=== PATIENT | female | born 1965 | race Caucasian/White ===

== ENCOUNTER 2018-10-18 15:53 | Inpatient (IN) | payer OTHER ==
[~2018-10-18] VITALS: Ht 162.6 cm; Wt 71.9 kg
[2018-10-18 15:53] VITALS: BP_SYST 118
--- NOTE | 2018-10-18 15:53 | NUR ---
BROUGHT IN BY [facility] AND PLACED IN BED #5, TRIAGED AND REPORT GIVEN TO NACHO
--- NOTE | 2018-10-18 16:12 | NUR ---
Patient is of the unit to CT scan.
--- NOTE | 2018-10-18 16:22 | NUR ---
Patient returned to the floor from CT.
--- NOTE | 2018-10-18 16:32 | NUR ---
Patient was bib paramedics. Per the patient's daughter, she was just released fron [facility] on 10/16/18. During this hospitalization the colostomy was left open to air. This morning the patient passed a blood clot from the exposed stoma and has been bleeding ever since. Pateint has ovarain ca with mets and is currently on a did Dilaudid and anti nausesa pump. Patient also has an ilesotmy, G-tube, and peritoneal dialysis tube.
--- NOTE | 2018-10-18 16:38 | NUR ---
ER at bedside examining patient.
[2018-10-18] MEDS ORDERED: NS 500 ML IV ONE (16:45)
[2018-10-18] MEDS ORDERED: LEVOFLOXACIN 500 MG/D5W 100 ML IV ONE (17:00)
[2018-10-18] MEDS ORDERED: PIPERACILLIN/TAZO 3.375 GM in NS 50 ML IV ONE (17:00)
--- NOTE | 2018-10-18 17:00 | NUR ---
Currently infusing IV antiobiotics.
[2018-10-18 17:27] LABS: BASOPHILS % (AUTO) 0.3 % (0.0-2.0); EOSINOPHILS # (AUTO) 0.1 K/uL (0.0-0.4); EOSINOPHILS % (AUTO) 0.4 % (0.0-4.0); HEMATOCRIT 23.8 % (36-48); HEMOGLOBIN 7.4 g/dL (12.0-16.0); LYMPHOCYTES % (AUTO) 7.5 % (20.5-51.5); MEAN CORPUSCULAR HEMOGLOBIN 27 pg (27-31); MEAN CORPUSCULAR HGB CONC 31 % (32-36); MEAN CORPUSCULAR VOLUME 85 fL (79.0-98.0); MONOCYTES # (AUTO) 1.4 K/uL (0.0-1.0); NEUTROPHILS % (AUTO) 81.8 % (40.0-70.0); PLATELET COUNT (AUTO) 154 K/uL (130-430); RED CELL DISTRIBUTION WIDTH 17.9 % (9.0-15.0); WHITE BLOOD COUNT (AUTO) 13.5 K/uL (4.8-10.8)
[2018-10-18 17:28] LABS: CALCIUM 8.9 mg/dL (8.4-11.0); CREATININE 0.78 mg/dL (0.55-1.30); POTASSIUM 3.7 mmol/L (3.5-5.1)
[2018-10-18] MEDS ORDERED: PIPERACILLIN/TAZOBACTAM 3.375 GM/VIAL (ZOSYN) IV ONE (17:33)
[2018-10-18 17:34] LABS: ALBUMIN 1.6 g/dL (3.4-4.8); TOTAL BILIRUBIN 3.6 mg/dL (0.0-1.0)
[2018-10-18 17:35] LABS: INR 1.2 (0.8-1.2); PROTHROMBIN TIME 12.5 SECS (9.5-12.5)
[2018-10-18] MEDS ORDERED: METOCLOPRAMIDE HCL 10 MG/2 ML VIAL IVP ONE (18:15)
[2018-10-18] MEDS ORDERED: PANTOPRAZOLE SODIUM 40 MG/VIAL (PROTONIX) IVP ONE (18:15)
[2018-10-18 18:56] LABS: BILIRUBIN,URINE 2+ (NEGATIVE); CLARITY/URINE HAZY (CLEAR); COLOR,URINE YELLOW (YELLOW); GLUCOSE,URINE NEGATIVE (NEGATIVE); KETONES,URINE NEGATIVE (NEGATIVE); LEUKOCYTE ESTERASE ,URINE NEGATIVE (NEGATIVE); NITRITE, URINE NEGATIVE (NEGATIVE); PH,URINE 5.5 (5.0-8.0); PROTEIN URINE 1+ (NEGATIVE); UROBILINOGEN,URINE 0.2 (0.2-1.0)
[2018-10-18 19:01] LABS: BLOOD, URINE TRACE (NEGATIVE)
[2018-10-18 19:07] LABS: BACTERIA,URINE FEW /HPF (None Seen); COARSE GRANULAR CASTS,URINE 0-10 /LPF (None Seen); FINE GRANULAR CASTS,URINE 0-10 /LPF (None Seen); MUCUS,URINE None Seen /LPF (None Seen); RBC,URINE 0-3 /HPF (0-3); WBC,URINE 0-3 /HPF (0-3)
--- NOTE | 2018-10-18 19:13 | NUR ---
ADMISSION NOTE Received patient from ER via davin, received report from USMAN GRIFFITH. Patient admitted with diagnosis of GI BLEED. Patient oriented to hospital routine, call light, toileting and safety-patient verbalized understanding.
[2018-10-18 19:14] VITALS: BP_SYST 120
--- NOTE | 2018-10-18 19:20 | NUR ---
Patient will be admitted to care of Dr. Quach. Admitted to telemetry unit. Will go to room 117-a. Belongings list completed. Summary report printed. bedside report given to Radha MARY.
[2018-10-18 20:00] VITALS: BP_SYST 108
--- NOTE | 2018-10-18 20:00 | NUR ---
Initial Notes Received patient resting in bed, awake, alert, oriented, family at bedside. Patient denies any acute distress at this time. Vital signs stable. Breathing is even and unlabored on 2L NC. Patient has multiple IV sites, right subclavian port-a-cath infusing IV antibiotics, left forearm #22 infusing IV Zofran from home pump, and right abdominal subq port infusing Dilaudid from home FREIGHT SERVICE INSPECTOR. Bleeding noted from patient's colostomy site, dressing changed. Ileostomy draining whitish drainage. G-tube draining dark green drainage to collection bag. Needs addressed. Educated patient regarding use of call light for assistance and fall precautions, patient verbalized understanding. Call light in hand, fall precautions in place. Will continue to monitor.
--- NOTE | 2018-10-18 20:50 | NUR ---
Paged Dr. Quach Paged Dr. Quach, [phone], s/w Whitney.
--- NOTE | 2018-10-18 21:30 | NUR ---
MD Communication S/W Dr Quach on phone. Notified MD that patient was admitted with home MUNICIPAL COURT JUDGE pump infusing Dilaudid and home IV pump infusing Zofran. Per MD, okay for patient to continue using home pumps, family to maintain.
[2018-10-18] MEDS: cefTRIAXone 1 GM in D5W 50 ML IV SCH (21:56)
[2018-10-18] MEDS ORDERED: cefTRIAXone 1 GM IVPB PREMIX 50 ML IV ONE (22:00)
[2018-10-18] MEDS ORDERED: DEXTROSE 50% JECT 50 ML DISP.SYRIN IVP PRN (22:45)
[2018-10-18] MEDS ORDERED: INSULIN REGULAR, HUMAN 100 UNITS/ML, 10 ML VIAL (novoLIN R) SUBCUT PRN (22:45)
[2018-10-18] MEDS ORDERED: *TPN PER PHARMACY XX PRN (22:45)
[2018-10-18] MEDS ORDERED: METOCLOPRAMIDE HCL 10 MG/2 ML VIAL IVP PRN (22:45)
--- NOTE | 2018-10-18 23:00 | NUR ---
PRBC Transfusion Started Ordered unit of PRBC started, verified and witnessed by Janel MARY. IV site patent/clean/dry. Will continue to monitor for adverse effects.
--- NOTE | 2018-10-18 23:38 | NUR ---
Consultation Paged Reason for Consultation: GI Bleed Was consult called: Y Person who was notified: Rose Consulting Physician: Dr. Robins Adult High School Instructor Ordering Physician: Dr. Quach
[2018-10-18] MEDS: D5LR 1,000 ML IV SCH (23:42)
[2018-10-18] MEDS: PANTOPRAZOLE SODIUM 40 MG in NS 50 ML IV SCH (23:42)
[2018-10-18] MEDS ORDERED: PANTOPRAZOLE SODIUM 40 MG/VIAL (PROTONIX) ONE (23:45)
--- NOTE | 2018-10-18 23:51 | NUR ---
Consultation Paged Reason for Consultation: Ovarian Cancer Was consult called: Y Person who was notified: Whitney Consulting Physician: Dr. Pulliam Watch Commander Ordering Physician: Dr. Quach
[2018-10-19 00:07] VITALS: BP_SYST 112
--- NOTE | 2018-10-19 02:00 | NUR ---
PRBC Transfusion Completed Patient resting in bed, awake, family at bedside. Patient denies any acute distress at this time. Breathing is even and unlabored. IV sites patent/clean/dry. Minimal bleeding noted from colostomy at this time. PRBC transfusion completed, no adverse reaction suspected/reported. Needs addressed. Call light in hand, fall precautions in place.
--- NOTE | 2018-10-19 04:00 | NUR ---
Nursing Notes Patient resting in bed with eyes closed, family at bedside. Patient in no distress. Breathing is even and unlabored. IV site patent/clean/dry, Protonix drip infusing per MD orders. Call light in hand, fall precautions in place.
[2018-10-19] MEDS: PANTOPRAZOLE SODIUM 40 MG in NS 50 ML IV SCH ×4 (04:29→20:34)
[2018-10-19] MEDS ORDERED: PANTOPRAZOLE SODIUM 40 MG/VIAL (PROTONIX) ONE (04:36)
--- NOTE | 2018-10-19 06:50 | NUR ---
Closing Notes Patient resting in bed with eyes closed, easily aroused, family at bedside. Patient denies any acute distress at this time. Breathing is even and unlabored. IV sites patent/clean/dry, no S/S infection/infiltration noted. No active bleeding noted at this time, dressings remains clean/dry/intact. Needs addressed throughout shift. Call light in hand, fall precautions in place. Will continue to monitor for changes and safety, and endorse all patient care/needs to oncoming nurse.
[2018-10-19 06:52] LABS: BASOPHILS % (AUTO) 0.3 % (0.0-2.0); EOSINOPHILS # (AUTO) 0.1 K/uL (0.0-0.4); EOSINOPHILS % (AUTO) 0.8 % (0.0-4.0); HEMOGLOBIN 8.3 g/dL (12.0-16.0); LYMPHOCYTES # (AUTO) 1.1 K/uL (1.0-5.5); LYMPHOCYTES % (AUTO) 10.4 % (20.5-51.5); MEAN CORPUSCULAR HEMOGLOBIN 27 pg (27-31); MEAN CORPUSCULAR HGB CONC 32 % (32-36); MEAN CORPUSCULAR VOLUME 86 fL (79.0-98.0); MONOCYTES # (AUTO) 1.1 K/uL (0.0-1.0); MONOCYTES % (AUTO) 10.9 % (1.7-9.3); NEUTROPHILS # (AUTO) 8.2 K/uL (1.8-7.7); NEUTROPHILS % (AUTO) 77.6 % (40.0-70.0); PLATELET COUNT (AUTO) 132 K/uL (130-430); RED BLOOD CELL COUNT(AUTO) 3.04 MIL/uL (4.2-6.2); RED CELL DISTRIBUTION WIDTH 16.8 % (9.0-15.0); WHITE BLOOD COUNT (AUTO) 10.5 K/uL (4.8-10.8)
[2018-10-19 07:06] LABS: CALCIUM 8.8 mg/dL (8.4-11.0); CREATININE 0.77 mg/dL (0.55-1.30); PHOSPHORUS 4.3 mg/dL (2.7-4.5); POTASSIUM 3.5 mmol/L (3.5-5.1)
--- NOTE | 2018-10-19 08:00 | NUR ---
Opening Note Report received from [facility] shift nurse. Patient is currently awake. A and O x 4. is at the bedside. Right subclavian port-a-cath is running D5LR@100 and Protonix drip @10. Patient has her own Dilaudid FREIGHT CAR CLEANER pump connected to the left abd. Patient's own Zofran drip is running on the LFA 22g. G-tube is draining green fluid. Colostomy stoma is open to air. Ileostomy is draining yellow stool. O2 is at 2l via NC. Call light is within reach and bed is in low position. Will continue to monitor
[2018-10-19] MEDS ORDERED: *TPN PER PHARMACY XX PRN (08:15)
[2018-10-19 08:20] VITALS: BP_SYST 108
[2018-10-19] MEDS ORDERED: PANTOPRAZOLE SODIUM 40 MG/VIAL (PROTONIX) IVP SCH (09:00)
[2018-10-19] MEDS: D5LR 1,000 ML IV SCH (09:39)
--- NOTE | 2018-10-19 10:14 | NUR ---
Rounds Assisted the patient to the commode and back into bed.
[2018-10-19] MEDS: LORazepam 2 MG/ML VIAL IVP PRN ×2 (10:18→23:36)
--- NOTE | 2018-10-19 12:18 | NUR ---
Rounds Patient is currently resting in bed.
[2018-10-19 12:19] VITALS: BP_SYST 102
--- NOTE | 2018-10-19 13:57 | NUR ---
IV insertion Inserted new IV 22g angiocath, on the LFA, using aseptic technique. Patient tolerated well.
--- NOTE | 2018-10-19 16:08 | NUR ---
MD Rounds Dr. Pulliam assessed the patient and spoke with the family at the bedside.
[2018-10-19 16:19] VITALS: BP_SYST 105
[2018-10-19] MEDS: LEVOFLOXACIN 500 MG/D5W 100 ML IV SCH (18:23)
[2018-10-19] MEDS: FAT EMULSIONS 250 ML IV SCH (18:28)
[2018-10-19] MEDS: [UNRECOGNIZED DRUG - OTHER] IV SCH ×7 (18:29)
[2018-10-19] MEDS: MAGNESIUM SULFATE IV SCH ×7 (18:29)
[2018-10-19] MEDS: POTASSIUM CHLORIDE IV SCH ×7 (18:29)
[2018-10-19] MEDS: TPN PERIPHERAL IV SCH ×7 (18:29)
--- NOTE | 2018-10-19 18:32 | NUR ---
Closing Note Patient is currently sleeping in bed. TPN was initiated @ 40ml/hr, lipids @ 5ml/hr all infusing on the right subclavian port-a-cath. D5LR is running @ 60, protonix drip @ 10ml all infusing on the 22g RFA. G-tube, colostomy, ileostomy are in place. Home dilaudid APNS is connected to the right abd. Zofran pump is running on LFA 22g. Family is at the bedside. Call light is within reach and bed is in low position. Will endorse care to the oncoming nurse.
[2018-10-19 20:00] VITALS: BP_SYST 124
[2018-10-19] MEDS: cefTRIAXone 1 GM in D5W 50 ML IV SCH (22:40)
--- NOTE | 2018-10-19 23:04 | NUR ---
NOTES Patient was administered due antibiotic, ceftriaxone; side effects were reviewed with patient and she verbalized understanding. Fingerstick blood glucose result was 99 mg/dL; no insulin coverage. Presently she is comfortable and has no furhter needs. is visiting with patient resting on recliner in room.
--- NOTE | 2018-10-19 23:21 | NUR ---
Paged Dr. Quach s/w Whitney.
--- NOTE | 2018-10-19 23:43 | NUR ---
C/O ANXIETY Patient is reporting anxiety and requested ativan. She also added that the ordered 1mg dose made her sleep all day and requested that I ask the doctor for a half dose. She was feeling very anxious and said would take the ordered dose and can't wait for the doctor to call back. I administered 1 mg as ordered. Her heart rate increased to 139 on the telemonitor and presently after the dose it is decreasing and is presently 113 on the telemonitor. Will monitor.
[2018-10-20] VITALS (19 sets, daily range): BP systolic 93–163
--- NOTE | 2018-10-20 00:38 | NUR ---
NOTES Patient resting w/eyes closed. Symmetrical rise and fall of chest. Call light w/in reach. Will monitor.
--- NOTE | 2018-10-20 00:48 | NUR ---
S/W Spoke w/ Dr. Quach regarding patient's request for ativan. I let him know the patient feels 1mg makes her too sleepy and would prefer a half dose. Dr. Quach ordered 0.5mg Ativan Q4 prn anxiety. Read back order and entered it on [facility].
[2018-10-20] MEDS: PANTOPRAZOLE SODIUM 40 MG in NS 50 ML IV SCH ×3 (01:28→19:55)
[2018-10-20] MEDS: D5LR 1,000 ML IV SCH (01:29)
--- NOTE | 2018-10-20 01:50 | NUR ---
NOTES Patient's IV fluids were replaced and infusing as ordered. She was assisted to the bedside commode and returned to bed. She is resting in comfortable position. is resting on chair at bedside.
--- NOTE | 2018-10-20 02:55 | NUR ---
NOTES Patient called to request cough medication. She reports that at home she take Robitusin for cough. Will page DR. Quach for order.
--- NOTE | 2018-10-20 02:56 | NUR ---
Paged Dr. Quach s/w Whitney
--- NOTE | 2018-10-20 04:00 | NUR ---
NOTES Patient called to report that she is not getting restful sleep due to cough and frequent voiding. I let her know doctor has not called back and will notify MD as soon as he calls.
--- NOTE | 2018-10-20 05:47 | NUR ---
NOTES -SOB Patient is reporting shortness of breath. Patient is on 2L NC and it was increased to 3.5L and oxygen saturation is 86-88%. RT is present for assessment. V/S are BP 126/79, HR 143. Carolyn GALVEZ.
--- NOTE | 2018-10-20 05:49 | NUR ---
Second call for Dr. Quach s/sara Macias
--- NOTE | 2018-10-20 06:03 | NUR ---
Third call for Dr. Quach s/sara Macias
--- NOTE | 2018-10-20 06:10 | NUR ---
NOTES - S/W MD Spoke to Dr. Quach, notified patient is desaturating. He ordered transfer to ICU. He also requested to speak with the charge nurse and gave further orders for stat chest-xray, Lasix IVP and stop fluids.
[2018-10-20] MEDS ORDERED: FUROSEMIDE 40 MG/4 ML VIAL IVP ONE ×2 (06:15→07:15)
--- NOTE | 2018-10-20 06:23 | NUR ---
CALLED : KYLER MARY CALLED TO NOTIFY THAT PT IS DE SATING ; GAVE ORDERES TO HER , BUT SINCE RN COULDNT UNDERSTAND MD , ASKED TO TALK TO CN , SO I TALKED WITH AND GAVE NEW ORDERS - TRANSFER PT TO ICU , LASIX 40 IV X1, CXR , IV FLUID TO STOP . ALL ORDERS ENTERED .NOTIFIED HOUSE SUP .
[2018-10-20] MEDS ORDERED: FUROSEMIDE 40 MG/4 ML VIAL IVP SCH (06:30)
--- NOTE | 2018-10-20 06:40 | NUR ---
Transfer Patient was transferred to ICU; report given to USMAN Latham.
[2018-10-20 06:41] LABS: CALCIUM 8.5 mg/dL (8.4-11.0); CREATININE 0.84 mg/dL (0.55-1.30); POTASSIUM 3.4 mmol/L (3.5-5.1)
[2018-10-20 06:45] LABS: BASOPHILS % (AUTO) 0.3 % (0.0-2.0); EOSINOPHILS # (AUTO) 0.1 K/uL (0.0-0.4); EOSINOPHILS % (AUTO) 0.8 % (0.0-4.0); HEMATOCRIT 26.6 % (36-48); HEMOGLOBIN 8.3 g/dL (12.0-16.0); LYMPHOCYTES # (AUTO) 1.1 K/uL (1.0-5.5); LYMPHOCYTES % (AUTO) 8.5 % (20.5-51.5); MEAN CORPUSCULAR HEMOGLOBIN 27 pg (27-31); MEAN CORPUSCULAR HGB CONC 31 % (32-36); MEAN CORPUSCULAR VOLUME 86 fL (79.0-98.0); MONOCYTES # (AUTO) 1.3 K/uL (0.0-1.0); NEUTROPHILS # (AUTO) 10.6 K/uL (1.8-7.7); NEUTROPHILS % (AUTO) 80.4 % (40.0-70.0); PLATELET COUNT (AUTO) 135 K/uL (130-430); RED CELL DISTRIBUTION WIDTH 17.3 % (9.0-15.0); WHITE BLOOD COUNT (AUTO) 13.1 K/uL (4.8-10.8)
--- NOTE | 2018-10-20 06:45 | NUR ---
Received Patient From [facility] Received transfer of patient from [facility], at bedside. Patient is awake, alert, oriented. Breathing is unlabored on 6L simple mask. Vital signs stable, sinus tach on monitor 120's. IV sites patent/clean/dry. Patient has home CONCRETE MIXER LOADER TRUCK MOUNTED Dilaudid pump, and home Zofran IV drip pump, okay to continue to use per MD. Patient made comfortable, denies any distress at this time. Patient's nurse Annalee MARY, to give bedside report to oncoming nurse USMAN Wayne.
[2018-10-20 06:46] LABS: PHOSPHORUS 3.9 mg/dL (2.7-4.5)
--- NOTE | 2018-10-20 06:52 | NUR ---
Nutrition Update Timi Scale 16 noted. Pt admitted for Upper GI bleed Diet: Clear liquid, no red BMI: 24.5 kg/m2 RD to follow per nutrition care standards.
--- NOTE | 2018-10-20 07:30 | NUR ---
AM ASSESSMENT. PT ABLE TO EXPRESS BASIC NEEDS, OFFERED HER A BEDPAN WHEN SHE ASKED TO BE TAKEN TO A BATHROOM, EDEMA TO LOWER EXTREMITIES NOTED, O2 IN USE, SIMPLE MASK AT 6L, PT DECLINED, A COMMODE IS PROVIDED, RAYMON AT BEDSIDE FOR SUPPORT, PT VOIDED ORANGE COLOR AND ASSISTED BACK TO BED AFTER CARE.
--- NOTE | 2018-10-20 08:00 | NUR ---
SOB. PT MEDICATED WITH LASIX 40 MG IVP ORDERED, EDEMA SEEN FROM UPPER BODY TO HER FEET, PT HAS FENTANYL PATCH TO HER LEFT UPPER ARM, KNIT GOODS MENDER DILAUDID IN USE.
[2018-10-20] MEDS: LORazepam 2 MG/ML VIAL IVP PRN ×3 (10:35→21:21)
--- NOTE | 2018-10-20 10:36 | NUR ---
C/O anxiousness. Requesting 0.5mg ativan to help relax. VSS, Pt on NC @5L reduced to 3L, tolerated well 94% sat. Urinated into BSC prior to associate media director. at bedside. Home pain pump infusing to left wrist, pt comfortable at this time. Medicated per MD PRN orders.
--- NOTE | 2018-10-20 12:12 | NUR ---
Dietitian Recommendations *If/when medically appropriate, recommend D40% AA10% at 75ml/hr (goal rate), IL20% at 10ml/hr via central line. Which will provide: 2064 kcal,90 gm protein and GIR 3.8 gm CHO/kg/min. Which meets: 91% of upper end of estimated calorie needs and 92% of upper end of estimated protein needs. Please see Nutritional Assessment for details. JAIL, RD
--- NOTE | 2018-10-20 15:32 | NUR ---
ANXIETY. PT ASKED FOR ANXIETY MEDS, MEDICATED WITH ATIVAN 0.5 MG IVP.
--- NOTE | 2018-10-20 16:00 | NUR ---
REST. PT SEEN WITH HER EYES CLOSED, FAMILY AT BEDSIDE, "SHE'S TIRED" PER FAMILY.
[2018-10-20] MEDS ORDERED: KCL 40 mEq in 100 mL (PREMIX) 100 ML IV ONE (16:45)
[2018-10-20] MEDS: LEVOFLOXACIN 500 MG/D5W 100 ML IV SCH (17:27)
[2018-10-20] MEDS: [UNRECOGNIZED DRUG - OTHER] IV SCH ×7 (17:58)
[2018-10-20] MEDS: MAGNESIUM SULFATE IV SCH ×7 (17:58)
[2018-10-20] MEDS: TPN PERIPHERAL IV SCH ×7 (17:58)
[2018-10-20] MEDS: POTASSIUM CHLORIDE IV SCH ×23 (17:58→18:40)
[2018-10-20] MEDS: FAT EMULSIONS 250 ML IV SCH (18:21)
[2018-10-20] MEDS: SODIUM CHLORIDE IV SCH ×16 (18:22→18:40)
[2018-10-20] MEDS: K PHOS IV SCH ×16 (18:22→18:40)
[2018-10-20] MEDS: TPN CENTRAL IV SCH ×16 (18:22→18:40)
[2018-10-20] MEDS: [UNRECOGNIZED DRUG - OTHER] IV SCH ×16 (18:22→18:40)
--- NOTE | 2018-10-20 19:30 | NUR ---
PM ASSESSMENT REPORT RECEIVED FROM LUIGI MARY. PT RECEIVED IN BED WITH EYES CLOSED, AROUSABLE TO VERBAL STIMULATION. IS AT BEDSIDE. VSS, NO S/S OF ACUTE DISTRESS NOTED. PT ON 5L OXIMIZER. ST ON MONITOR. RFA 22G INFUSING NS @ 2 CC/HR TKO AND PROTONIX DRIP @ 10 CC/HR, RT UPPER CHEST PORT-A-CATH INFUSING TPN @ 43 CC/HR AND LIPIDS @ 5 CC/HR, LT WRIST 22G INFUSING PTS HOME MEDICATIONS, DILAUDID JAVA SECURITY ARCHITECT PUMP AND ZOFRAN CONTINUOUS INFUSION. FAMILY TO MANAGE HOME MEDICATIONS. G-TUBE IN PLACE, CONNECTED TO DRAINAGE BAG AND DRAINING DARK GREED FLUID. COLOSTOMY SITE DRESSING CDI. ILEOSTOMY BAG IN PLACE DRAINING MINIMAL AMOUNT OF LIQUID STOOL. PT STATES 4/10 PAIN AT THIS TIME IS TOLERABLE. NO OTHER NEEDS VERBALIZED PER PT OR FAMILY AT THIS TIME. HOB ELEVATED, BED IN LOWEST POSITION, CALL LIGHT IN REACH. WILL CONTINUE TO MONITOR PT. Addendum: 10/20/18 at 2347 by Heaven Jordan RN OXIMIZER @ 8L
[2018-10-20] MEDS: IPRATROPIUM BROM 0.5 MG/2.5 ML VIAL.NEB (ATROVENT) INH SCH (19:36)
[2018-10-20] MEDS: LevALBUTEROL HCL 1.25 MG/0.5 ML *CONC.* VIAL.NEB (XOPENEX CONC.) INH SCH (19:37)
[2018-10-20] MEDS: PIPERACILLIN/TAZO 3.375/DEX-IS 50 ML IV SCH ×2 (19:56→23:39)
[2018-10-20] MEDS ORDERED: CEFEPIME 1 GM in D5W 50 ML IV SCH (21:00)
[2018-10-21] VITALS (26 sets, daily range): BP systolic 92–133
[2018-10-21] MEDS: IPRATROPIUM BROM 0.5 MG/2.5 ML VIAL.NEB (ATROVENT) INH SCH ×4 (00:50→19:29)
[2018-10-21] MEDS: LevALBUTEROL HCL 1.25 MG/0.5 ML *CONC.* VIAL.NEB (XOPENEX CONC.) INH SCH ×4 (00:51→19:29)
[2018-10-21] MEDS: PANTOPRAZOLE SODIUM 40 MG in NS 50 ML IV SCH ×5 (01:34→23:39)
[2018-10-21] MEDS: LORazepam 2 MG/ML VIAL IVP PRN ×4 (01:34→19:46)
--- NOTE | 2018-10-21 01:40 | NUR ---
ANXIETY PT CONTINUES TO FEEL ANXIOUS AND RESTLESS. ATIVAN IVP GIVEN PER ORDERS. WILL CONTINUE TO MONITOR PT.
[2018-10-21] MEDS: PIPERACILLIN/TAZO 3.375/DEX-IS 50 ML IV SCH ×4 (05:52→23:39)
[2018-10-21 06:19] LABS: BASOPHILS # (AUTO) 0.1 K/uL (0.0-0.2); BASOPHILS % (AUTO) 0.4 % (0.0-2.0); EOSINOPHILS # (AUTO) 0.1 K/uL (0.0-0.4); EOSINOPHILS % (AUTO) 0.7 % (0.0-4.0); HEMATOCRIT 26.2 % (36-48); LYMPHOCYTES % (AUTO) 6.3 % (20.5-51.5); MEAN CORPUSCULAR HEMOGLOBIN 27 pg (27-31); MEAN CORPUSCULAR HGB CONC 31 % (32-36); MEAN CORPUSCULAR VOLUME 87 fL (79.0-98.0); MONOCYTES # (AUTO) 1.3 K/uL (0.0-1.0); MONOCYTES % (AUTO) 8.1 % (1.7-9.3); NEUTROPHILS # (AUTO) 13.4 K/uL (1.8-7.7); NEUTROPHILS % (AUTO) 84.5 % (40.0-70.0); PLATELET COUNT (AUTO) 114 K/uL (130-430); RED BLOOD CELL COUNT(AUTO) 3.02 MIL/uL (4.2-6.2); RED CELL DISTRIBUTION WIDTH 17.1 % (9.0-15.0); WHITE BLOOD COUNT (AUTO) 15.8 K/uL (4.8-10.8)
[2018-10-21 06:42] LABS: ALBUMIN 1.3 g/dL (3.4-4.8); CALCIUM 8.4 mg/dL (8.4-11.0); CREATININE 0.98 mg/dL (0.55-1.30); PHOSPHORUS 4.2 mg/dL (2.7-4.5); POTASSIUM 3.2 mmol/L (3.5-5.1); TOTAL BILIRUBIN 4.4 mg/dL (0.0-1.0)
--- NOTE | 2018-10-21 07:30 | NUR ---
ENDORSEMENT BEDSIDE REPORT GIVEN TO RAUL MARY USING SBAR APPROACH.
--- NOTE | 2018-10-21 07:40 | NUR ---
RN OPENING NOTE RECEIVED SBAR REPORT AT BEDSIDE FROM ENDORSING NURSE. PT IS AAO, NO COMPLAINT OF PAIN, AT BEDSIDE SEE VS FLOW SHEET.
--- NOTE | 2018-10-21 07:50 | NUR ---
PT MOVED FROM BED 5 TO BED 2 DUE TO CONSTRUCTION IN ROOM 6
--- NOTE | 2018-10-21 10:06 | NUR ---
DR. GARDNER AT BEDSIDE
--- NOTE | 2018-10-21 11:40 | NUR ---
DR. HOLLAND AT BEDSIDE NEW ORDERS RECEIVED
[2018-10-21] MEDS ORDERED: KCL 40 mEq in 100 mL (PREMIX) 100 ML IV ONE (11:45)
--- NOTE | 2018-10-21 12:11 | NUR ---
Nutrition Note RD received consult note regarding evaluation for TF. RD reviewed current EMR including physician's and nursing notes, labs, meds, care trends, and Nutrition Assessment completed yesterday by lorena rey RD. Spoke w/ electrical discharge machine operator regarding this -- she communicated w/ pt's primary RN and stated that pt continues w/ GI bleed and will not be given nutrition support via GT at this time. Pt remains on clear liquid, no red PO diet and TPN w/ lipids. RD to continue to follow as per nutrition care standards.
[2018-10-21] MEDS: NACL 0.9% 1,000 ML IV SCH (12:59)
--- NOTE | 2018-10-21 14:05 | NUR ---
DC PLANNING Spoke sara JuárezMaurizio from [email or web address], office [phone] cell [phone], they are handling TPN & Dilaudid for pt. Once ready to dc to give them a call to set up TPN & Dilaudid for home if still needed. If needs IV abx can call & will set up. Addendum: 10/21/18 at 1413 by Vee Paredes RN add to note above: Farrukh in pharmacist @ [email or web address] if any questions.
[2018-10-21] MEDS: LEVOFLOXACIN 500 MG/D5W 100 ML IV SCH (16:45)
[2018-10-21] MEDS ORDERED: K PHOS IV SCH ×8 (18:00)
[2018-10-21] MEDS ORDERED: SODIUM CHLORIDE IV SCH ×8 (18:00)
[2018-10-21] MEDS ORDERED: POTASSIUM CHLORIDE IV SCH ×8 (18:00)
[2018-10-21] MEDS ORDERED: [UNRECOGNIZED DRUG - OTHER] IV SCH ×8 (18:00)
[2018-10-21] MEDS ORDERED: TPN CENTRAL IV SCH ×8 (18:00)
[2018-10-21] MEDS: fentaNYL 100 MCG/HR PATCH TD SCH (18:00)
--- NOTE | 2018-10-21 18:14 | NUR ---
FENTANYL PATCH NON-ADMINISTERED, FAMILY ALREADY ADMINISTERED THEIR OWN 0.2 MG PATCH
[2018-10-21] MEDS: FAT EMULSIONS 250 ML IV SCH (18:18)
--- NOTE | 2018-10-21 19:10 | NUR ---
ENDORSEMENT SBAR REPORT ENDORSED TO RECEIVING RN AT BEDSIDE. PT AAO, SITTING UP IN BED WITH NO COMPLAINT.
--- NOTE | 2018-10-21 19:45 | NUR ---
i have administered ativan:0.5mg ivp per the pt's requests.
--- NOTE | 2018-10-21 20:00 | NUR ---
pt.assessed.v/s assessed.pt.presents hx;cancer;ovarian;extensive w/mets pulmonary.per monitor;cardio;pt.presents s.tachycardia. no arrythmias.pt.presents breathing pattern;tachypnea;breathing character;shallow,dyspnea@rest/excertion.pt.receiving the administration o2-therapy via oximizer;o2 administered@the rate of 10l.o2-sat%=96%.hhn-treatment; per r/t:scheduled q=6hrs. pt.presents general status weak.upper/lower extremities;pt.presents edema;generalized:upper lower extremities.pt.presents pump:dilaudid/zofran;pump settings adjusted per family;pmd.pt.presents multiple iv sites.location;rt.svc;port/cath.tpn/lipids administered.rt.forearm:iv fluids/protonix-drip.rlq;abdomen;dilaudid;lt.forearm;zofran-drip.pt.presents plera-vac:llq;abdomen: pt.abdomen cavity drained;periodically.pt.presents colostomy/ileostomy;mid-line abdomen;upper.colostomy:cover;dsg.absent colostomy bag.ileostomy presents collection bag,g-tube connected to drainage bag;gravity.pt.repositioned.pt.utilizing the bsc.call light/telephone placed w/in the reach of the pt. Addendum: 10/22/18 at 0159 by Angel Polo RN pt.repositioned.
--- NOTE | 2018-10-21 21:00 | NUR ---
i have assisted th pt.to the bsc.pt.assisted return to bed.heart rate accelerated;122bmp.post return to bed from the bsc. o2 therapy intact administered.
--- NOTE | 2018-10-21 22:00 | NUR ---
pt.assessed.pt.repositioned.pt.assessed for cleanliness.
--- NOTE | 2018-10-21 23:45 | NUR ---
pt.assisted to the bsc.pt.assisted return to bd.heart rate accelerated post return to bed from the bsc. i have assessed the blood glucose;value;108mg/dl.
[2018-10-22] VITALS (24 sets, daily range): BP systolic 84–137
--- NOTE | 2018-10-22 | NUR ---
pt.assessed.pt.assessed for cleanliness.pt.repositioned.i have assessed the iv access;all intact;patent.pt.presents general loc;lethargic;arouseable.v/s assessed ;values w/in normal limits.o2-sat%=96%v/s assessed;values w/in normal limits.call light/telephone placed w/in the reach of the pt. Addendum: 10/22/18 at 0210 by Angel Polo RN i have administered the zosyn;abx;ivpb 0000a dose.i have administered the protonix-drip bag.
[2018-10-22] MEDS: IPRATROPIUM BROM 0.5 MG/2.5 ML VIAL.NEB (ATROVENT) INH SCH ×4 (00:43→19:32)
[2018-10-22] MEDS: LevALBUTEROL HCL 1.25 MG/0.5 ML *CONC.* VIAL.NEB (XOPENEX CONC.) INH SCH ×4 (00:43→19:32)
[2018-10-22] MEDS: LORazepam 2 MG/ML VIAL IVP PRN ×4 (00:55→16:26)
--- NOTE | 2018-10-22 01:00 | NUR ---
pt.assisted to the bsc.pt.assisted return to bed.pt.repositioned.noted heart rate accelerated post return to bed from the bsc. pt.had requested ativan.i have administered ativan:0.5m ivp.pt.had requested water:cup of water provided.
--- NOTE | 2018-10-22 02:00 | NUR ---
pt.assessed v/s assessed;values w/in normal limits.pt.repositioned.all iv access intact;patent.
--- NOTE | 2018-10-22 04:00 | NUR ---
pr.assessed.v/s assessed.pt.presents cardio;s.tachycardia.pt.assessed for cleanliness.pt.repositioned.i have assessed the iv access; intact;patent.iv fluids,tpn/lipids infusing.protonix drip,dilaudid/zofran drips infusing.general status stable.respiratory status;labored:breathing pattern/character tachypnea.call light/telephone placed w/in the reach of the pt.
[2018-10-22] MEDS: PANTOPRAZOLE SODIUM 40 MG in NS 50 ML IV SCH ×5 (04:50→22:07)
[2018-10-22] MEDS: PIPERACILLIN/TAZO 3.375/DEX-IS 50 ML IV SCH ×3 (05:23→17:32)
--- NOTE | 2018-10-22 06:00 | NUR ---
pt.assisted to the bsc.pt.assisted return to bed.pt.repositioned.pt.presents accelerated heart rate post return to bed from bsc. pt's requested the administration of ativan.i have administered ativan:0.5mg ivp.breathing pattern/character labored.pt. receiving o2 therapy via oximizer administered@10l/min.
[2018-10-22 06:09] LABS: BASOPHILS # (AUTO) 0.1 K/uL (0.0-0.2); BASOPHILS % (AUTO) 0.5 % (0.0-2.0); EOSINOPHILS # (AUTO) 0.2 K/uL (0.0-0.4); EOSINOPHILS % (AUTO) 1.1 % (0.0-4.0); HEMATOCRIT 24.7 % (36-48); HEMOGLOBIN 7.6 g/dL (12.0-16.0); LYMPHOCYTES # (AUTO) 0.8 K/uL (1.0-5.5); LYMPHOCYTES % (AUTO) 5.1 % (20.5-51.5); MEAN CORPUSCULAR HEMOGLOBIN 27 pg (27-31); MEAN CORPUSCULAR HGB CONC 31 % (32-36); MEAN CORPUSCULAR VOLUME 87 fL (79.0-98.0); MONOCYTES # (AUTO) 1.3 K/uL (0.0-1.0); MONOCYTES % (AUTO) 8.1 % (1.7-9.3); NEUTROPHILS # (AUTO) 13.5 K/uL (1.8-7.7); NEUTROPHILS % (AUTO) 85.2 % (40.0-70.0); PLATELET COUNT (AUTO) 103 K/uL (130-430); RED BLOOD CELL COUNT(AUTO) 2.86 MIL/uL (4.2-6.2); RED CELL DISTRIBUTION WIDTH 17.8 % (9.0-15.0); WHITE BLOOD COUNT (AUTO) 15.8 K/uL (4.8-10.8)
[2018-10-22 06:28] LABS: CALCIUM 8.5 mg/dL (8.4-11.0); CREATININE 1.06 mg/dL (0.55-1.30); POTASSIUM 3.5 mmol/L (3.5-5.1)
--- NOTE | 2018-10-22 06:30 | NUR ---
pt's @bedside.i inquired if i may attend to dsg change;port/cath,chg bath,change of the colostomy dsg,ileostomy bag. pt's stated it was best to allow the pt,.to rest.pt's has refused the changing of the dsg's.
[2018-10-22 06:38] LABS: ALBUMIN 1.3 g/dL (3.4-4.8); PHOSPHORUS 3.4 mg/dL (2.7-4.5); TOTAL BILIRUBIN 4.6 mg/dL (0.0-1.0)
--- NOTE | 2018-10-22 07:05 | NUR ---
Opening Note Patient received sleeping in bed with @ bedside. Patient connected to monitor with sinus tach. Patient on 10L oxygen via oximizer. Patient has right forearm 22 gauge IV infusing NS @ 10ml/hr and protonix drip @ 10ml, right lower abdomen MARKET RESEARCH COORDINATOR pump from home, left forearm IV infusing zofran drip from home, and a right subclavian port-a-cath infusing TPN @ 43 ml/hr and lipids @ 5 ml/hr. Patient uses bedside commode to void with assist. Reinforced use of call light. Safety precautions enforced.
--- NOTE | 2018-10-22 07:30 | NUR ---
MD Rounds Dr. Wren @ bedside.
[2018-10-22] MEDS ORDERED: TPN CENTRAL IV SCH ×16 (08:15→18:00)
[2018-10-22] MEDS ORDERED: K PHOS IV SCH ×16 (08:15→18:00)
[2018-10-22] MEDS ORDERED: POTASSIUM CHLORIDE IV SCH ×16 (08:15→18:00)
[2018-10-22] MEDS ORDERED: [UNRECOGNIZED DRUG - OTHER] IV SCH ×16 (08:15→18:00)
[2018-10-22] MEDS ORDERED: SODIUM CHLORIDE IV SCH ×16 (08:15→18:00)
--- NOTE | 2018-10-22 09:35 | NUR ---
MD Jang. Dr. Buenrostro @ bedside. New orders received and will be carried out.
[2018-10-22] MEDS ORDERED: FUROSEMIDE 20 MG/2 ML VIAL IVP ONE (09:45)
[2018-10-22] MEDS: ALBUMIN HUMAN 25% 50 ML IV SCH ×3 (10:40→21:11)
[2018-10-22] MEDS: NACL 0.9% 1,000 ML IV SCH ×2 (11:45→17:07)
--- NOTE | 2018-10-22 12:00 | NUR ---
RN Rounds Patient resting in bed with @ bedside. No signs of acute distress noted. Safety precautions enforced.
--- NOTE | 2018-10-22 13:00 | NUR ---
Rounds Dr. Quach @ bedside.
--- NOTE | 2018-10-22 14:54 | NUR ---
Case mgt: Pt continues on oxymizer 10 Liters/min--Per ICU nursing, they are attempting to wean pt's high flow oxygen down before pt can go home on hospice--AMAURY MARY
--- NOTE | 2018-10-22 15:00 | NUR ---
Central line dressing change Port-a-cath dressing changed using aseptic technique. Patient tolerated procedure well. No signs of acute distress noted.
--- NOTE | 2018-10-22 16:24 | NUR ---
Nutrition F/U Admitting Diagnosis Upper GI bleed Reviewed Pertinent Medical/Surgical Hx Medical Record Patient Primary RN Medical History Comment: Per updated MD note: GI bleeding, Acute Blood Loss Anemia, Anemia of chronic illness, Pneumonia, Metastatic Ovarian Mucinous Carcinoma, Multiple abdominal Surgeries, SBO, DVT in both legs, IVC filter, severe protein malnutrition, dysphagia on TPN Subjective Information Pt seen sleeping in bed, +oximizer, w/ nurse at bedside. Per RN report, pt is tolerating TPN which is infusing at 43 ml/hr. Per RN, pt is dependent on oximizer and once pt is able to breathe better, she will be transferred to hospice. Per EMR, I/O: 895/1550 -655ml; IV total intake 795 ml per 12 hrs. Pt does not appear appropriate for invasive procedure for GT feeding as she is on palliative care. Current TPN regimen provides: 1148 kcal/day, 52 gm protein/day, 1152 ml total volume/day, and GIR: 2 gm CHO/kg/min. This meets 59% of lower end of estimated caloric needs and 80% of upper end of estimated protein needs. Pt is not yet meeting adequate nutrition w/ current TPN regimen. Nutrition education is not provided at this time. Per previous RD note 10/21/18: Spoke w/ pharmacist in charge owner regarding this -- she communicated w/ pt's primary RN and stated that pt continues w/ GI bleed and will not be given nutrition support via GT at this time. Pt remains on clear liquid, no red PO diet and TPN w/ lipids. RD to continue to follow as per nutrition care standards. Current Diet Order/Nutrition Support Clear liquid, no red + D40%, AA10% at 43.75ml/hr, IL20% at 5ml/hr via central line Patient/Significant Other Able To Verbalize Education Provided Not Indicated Pertinent Medications fentanyl, MVI, reglan, lorazepam, piperacillin/tazobactam Pertinent Labs K 3.5 WNL (improved), BG 106 H (improved), POC BG 131 H, Alb 1.3 L, H/H 7.6 L/24.7 L Height (Feet) 5 feet Height (Inches) 4.00 inches Weight (Pounds) 143 pounds Weight (Calculated Kilograms) 64.887318 kilograms Patient Weight 64.864 kg Body Mass Index 24.54 kg/m2 Usual Weight 180 lbs %UBW 79 %IBW 119 [place]/Adjusted Body Weight 120 lb, 55 kg Recent Weight Change Yes - 37 lb wt loss in 9 months (20% severe wt loss) Weight Status Appropriate Gastrointestinal Symptoms None Last BM Oct 19, 2018 Usual Diet At Home TPN dependent, water, juices per . Skin Integrity Comment: Timi scale: 16; Per RN notes +pale skin color, no skin breakdown, 2+ pitting edema to Bilateral foot. Current % PO Negligible <25% Estimated Energy Expenditure (kcals/day) 2906-9142 kcal/day (30-35 kcal/kg CBW for Cancer) Estimated Protein Required (g/day) 65-98 gm/day (1-1.5 gm/kg CBW for Cancer) Estimated Fluid Required (l/day) per MD (fluid overload) Problem/Etiology/Signs/Symptoms Inability to ingest food r/t altered GI function AEB pt's family's report of small amount of liquid diet at home and TPN dependent. *Ongoing Expected Outcomes/Goals Monitor TPN intake and tolerance w/ goal of pt meeting at least 75% of estimated nutritional needs, labs trending WNL, normal GI function, skin integrity/wt maintenance. *Ongoing Dietitian Recommendations *If/when medically appropriate, recommend D40% AA10% at 75ml/hr (goal rate), IL20% at 5ml/hr via central line. Which will provide: 1824 kcal/day, 90 gm protein/day, 1940 ml total volume/day, and and GIR 3.5 gm CHO/kg/min. Which meets: 94% of upper end of estimated calorie needs and 92% of upper end of estimated protein needs. Follow Up High Risk: F/U in 2-3 days Signed: 10/22/18 at 1624 by Pretty EAST <Co-Signature Required> Co-Signed: 10/22/18 at [address] Addendum: 10/22/18 at [address] RD spoke w/ pharmacist via phone call to relay new RD rec for TPN support. PharmD stated that she plans to increase pt's TPN to Dr. Quach's goal rate of 60 ml/hr. Pt was having some issues w/ fluid balance, therefore no adjustments were made to current TPN rate. RD to continue to follow as per nutrition care standards.
--- NOTE | 2018-10-22 16:32 | NUR ---
Dietitian Recommendations *If/when medically appropriate, recommend D40% AA10% at 75ml/hr (goal rate), IL20% at 5ml/hr via central line. Provide: 1824 kcal/day, 90 gm protein/day, 1940 ml total volume/day, and and GIR 3.5 gm CHO/kg/min. Meets: 94% of upper end of estimated calorie needs and 92% of upper end of estimated protein needs. LP, RD Please refer to Nutrition F/U for details.
[2018-10-22] MEDS: LEVOFLOXACIN 500 MG/D5W 100 ML IV SCH (17:07)
[2018-10-22] MEDS: FAT EMULSIONS 250 ML IV SCH (17:12)
--- NOTE | 2018-10-22 19:15 | NUR ---
Closing Note Endorsed to power and recovery shift engineer RN using SBAR format. Patient in no signs of acute distress at this time.
--- NOTE | 2018-10-22 19:30 | NUR ---
PM ASSESSMENT Pt in bed w/ eyes closed resting comfortably, no signs of acute distress or discomfort noted. Family at bedside. VSS w/ Sinus Tach seen on the monitor. Pt on 10L O2 via oximizer, tolerating well w/ O2 sats @ 97% and even and unlabored breathing. Pt has a Right FA 20 g infusing NS @ 10cc/hr and protonix drip @ 10 ml/hr, L 22g infusing zofran drip from home, right lower abd [employer]ARDS pump from home, and a right subclavian port-a-cath infusing TPN @ 43 cc/hr and lipids@ 5 cc/hr. Bed is locked and in lowest position, call light w/in reach, will continue to monitor.
--- NOTE | 2018-10-22 22:33 | NUR ---
BT INITIATION: Consent signed per family agreeing to administration of blood. Blood has been type and crossmatched. Blood sent from blood bank. Information on unit of blood checked against patient wristband at bedside by two nurses. All information matches. Patient or responsible alliance party informed of potential complications associated with blood transfusion. Informed of possible transfusion reaction symptoms. Aware of need to notify nurse at once of itching, shortness of breath, flushing, feeling of impending doom, or other symptoms not previously present. Vital signs taken within 5 minutes prior to initiation of transfusion. RN will remain with patient for first 15 minutes of transfusion at which time vital signs will be re-assessed.
[2018-10-23] VITALS (25 sets, daily range): BP systolic 92–129
[2018-10-23] MEDS: PIPERACILLIN/TAZO 3.375/DEX-IS 50 ML IV SCH ×4 (00:33→17:01)
[2018-10-23] MEDS: LevALBUTEROL HCL 1.25 MG/0.5 ML *CONC.* VIAL.NEB (XOPENEX CONC.) INH SCH ×4 (01:16→19:51)
[2018-10-23] MEDS: IPRATROPIUM BROM 0.5 MG/2.5 ML VIAL.NEB (ATROVENT) INH SCH ×4 (01:16→19:52)
[2018-10-23] MEDS: LORazepam 2 MG/ML VIAL IVP PRN ×3 (02:00→20:11)
--- NOTE | 2018-10-23 02:13 | NUR ---
CHG Offered pt CHG bath at this time but pt and pt family refused. Pt's states "I want her to sleep and rest for the night, we would like it during the day". Educated the family on benefits of CHG bath. Will continue to monitor.
[2018-10-23] MEDS: PANTOPRAZOLE SODIUM 40 MG in NS 50 ML IV SCH ×4 (03:29→22:56)
--- NOTE | 2018-10-23 05:00 | NUR ---
Pt in bed w/ eyes closed resting comfortably. No signs of acute distress or discomfort noted. Family sleeping at bedside. Pt doesn't verbalize any other needs at this time. Will continue to monitor.
[2018-10-23 05:35] LABS: BASOPHILS # (AUTO) 0.1 K/uL (0.0-0.2); BASOPHILS % (AUTO) 0.5 % (0.0-2.0); EOSINOPHILS # (AUTO) 0.2 K/uL (0.0-0.4); HEMATOCRIT 27.7 % (36-48); HEMOGLOBIN 8.5 g/dL (12.0-16.0); LYMPHOCYTES % (AUTO) 5.7 % (20.5-51.5); MEAN CORPUSCULAR HEMOGLOBIN 26 pg (27-31); MEAN CORPUSCULAR HGB CONC 31 % (32-36); MEAN CORPUSCULAR VOLUME 86 fL (79.0-98.0); MONOCYTES # (AUTO) 1.4 K/uL (0.0-1.0); MONOCYTES % (AUTO) 8.2 % (1.7-9.3); NEUTROPHILS # (AUTO) 14.8 K/uL (1.8-7.7); NEUTROPHILS % (AUTO) 84.6 % (40.0-70.0); PLATELET COUNT (AUTO) 96 K/uL (130-430); RED BLOOD CELL COUNT(AUTO) 3.21 MIL/uL (4.2-6.2); RED CELL DISTRIBUTION WIDTH 16.9 % (9.0-15.0); WHITE BLOOD COUNT (AUTO) 17.5 K/uL (4.8-10.8)
[2018-10-23 06:46] LABS: CALCIUM 8.6 mg/dL (8.4-11.0); CREATININE 1.14 mg/dL (0.55-1.30); POTASSIUM 3.3 mmol/L (3.5-5.1)
[2018-10-23 06:53] LABS: ALBUMIN 1.7 g/dL (3.4-4.8); PHOSPHORUS 3.5 mg/dL (2.7-4.5); TOTAL BILIRUBIN 5.5 mg/dL (0.0-1.0)
--- NOTE | 2018-10-23 07:20 | NUR ---
ENDORSEMENT Report given to USMAN Montgomery using SBAR format and pt care was endorsed. Pt in bed w/ eyes closed resting comfortably, no signs of acute distress or discomfort noted. Family at bedside.
--- NOTE | 2018-10-23 07:25 | NUR ---
Opening Note Patient received sleeping in bed with @ bedside. Patient on secured entrance monitor with sinus tachy. Patient on 10L O2 via oximizer breathing evenly and unlabored. Patient has multiple IV access sites including a right forearm 22 gauge infusing NS @ 10 ml/hr and protonix drip @ 10 ml/hr, right subclavian port-a-cath infusing TPN @ 43.75 ml/hr and lipids @ 5 ml/hr, a right lower abdomen 22 IV infusing PALLET STONE POSITIONER pump (dilaudid) from home, and a left forearm 22 IV infusing zofran drip from home. Safety precautions enforced. Call light in reach.
--- NOTE | 2018-10-23 09:40 | NUR ---
MD Rounds Dr. Pulliam @ bedside. No new orders received.
--- NOTE | 2018-10-23 11:31 | NUR ---
1118 TRIED PT ON ET CO2 NASAL CANNULA @8LPM. PT DESAT TO 88%. PLACED PT ON 8L OXYMIZER. SAT 94% [id number]. Addendum: 10/23/18 at 1133 by Liana Law RT Amended: Links added.
--- NOTE | 2018-10-23 12:00 | NUR ---
RN Rounds Patient asleep in bed. No signs of acute distress noted. No complaints of pain. Safety precautions enforced.
[2018-10-23] MEDS ORDERED: POTASSIUM CHLORIDE 40 MEQ in D5W 250 ML IV ONE (12:15)
--- NOTE | 2018-10-23 12:16 | NUR ---
Sawmilling Operator Note HAND SPLITTER met with patient's at bedside. Discussed that patient and family goal remains to get patient home to attend her daughter's wedding on November 01. They are happy with [facility] palliative care and will stay with them when patient is ready to switch to hospice. They also use [facility] for pain relief and TPN. Patient's daughter is a nurse and is assisting with patient's care at home. Discussed patient's three year cancer and treatment history. Offered support. Sawmilling Operator will remain available upon request.
--- NOTE | 2018-10-23 13:00 | NUR ---
Rounds Dr. Quach @ bedside. New orders received and will be carried out.
[2018-10-23] MEDS ORDERED: FUROSEMIDE 20 MG/2 ML VIAL IVP ONE (15:30)
--- NOTE | 2018-10-23 16:00 | NUR ---
RN Rounds Patient asleep in bed. No signs of acute distress noted. No complaints of pain. Safety precautions enforced. Use of call light reinforced.
[2018-10-23] MEDS ORDERED: VANCOMYCIN HCL 1 GM/NS PREMIX 250 ML IV SCH (17:00)
[2018-10-23] MEDS: FAT EMULSIONS 250 ML IV SCH (17:01)
[2018-10-23] MEDS ORDERED: TPN CENTRAL IV SCH ×8 (18:00)
[2018-10-23] MEDS ORDERED: SODIUM CHLORIDE IV SCH ×8 (18:00)
[2018-10-23] MEDS ORDERED: K PHOS IV SCH ×8 (18:00)
[2018-10-23] MEDS ORDERED: [UNRECOGNIZED DRUG - OTHER] IV SCH ×8 (18:00)
[2018-10-23] MEDS ORDERED: POTASSIUM CHLORIDE IV SCH ×8 (18:00)
--- NOTE | 2018-10-23 19:25 | NUR ---
Closing Note Patient endorsed to spinning doffer RN using SBAR format. No signs of acute distress noted. Safety precautions enforced.
--- NOTE | 2018-10-23 20:00 | NUR ---
PM Assessment Pt laying supine in bed w/ at bedside. AAO. Sinus tach shown on monitor. Pt on Oxymizer @8L saturation at 96%. No s/s of distress noted. Pt no c/o of pain at this time. Pt has RFA 20g running NS @10mL/hr, and Protonix Drip @10mL/hr. Pt came in with Rt subclavian portacath that is now infusing TPN/Lipids, a Rt Lower ABD IV that is running Dilaudid on a CUSTOM FURRIER pump which was set up by hospice care and is being managed by Pt at bedside. Pt also came in with a LFA 22g, that is running a Zofran drip, which was set up by hospice care and being managed by Pt. IV sites C/D/I, no s/s of infiltration noted. Pt has G-tube in place draining fluid to gravity. Pt has a PleurX drainage site that is being managed by the family. Pt has a colostomy and ileostomy. No drainage noted from colostomy. Minimal yellow drainage draining from ileostomy. Pt has Fentanyl patch in place in [place]. Bed locked in lowest position, safety precautions in place, bedside commode in place and call light in reach. Will continue to monitor.
--- NOTE | 2018-10-23 20:30 | NUR ---
CHG CHG bath given. Pt tolerated well. Will continue to monitor.
--- NOTE | 2018-10-23 21:00 | NUR ---
Pt placed on 6L Oximizer, saturating 93-96%. Pt tolerating well. Will continue to monitor.
--- NOTE | 2018-10-23 23:08 | NUR ---
Endorsement Report given to Lc MARY at bedside via SBAR approach. Pt showing no s/s of distress or c/o of any pain at this time.
--- NOTE | 2018-10-23 23:10 | NUR ---
Report received from USMAN Santillan using SBAR format and pt care was endorsed.
[2018-10-24] VITALS (24 sets, daily range): BP systolic 96–148
[2018-10-24] MEDS: PIPERACILLIN/TAZO 3.375/DEX-IS 50 ML IV SCH ×5 (00:25→23:40)
[2018-10-24] MEDS: PANTOPRAZOLE SODIUM 40 MG in NS 50 ML IV SCH ×5 (00:26→20:13)
[2018-10-24] MEDS: IPRATROPIUM BROM 0.5 MG/2.5 ML VIAL.NEB (ATROVENT) INH SCH ×4 (01:23→19:00)
[2018-10-24] MEDS: LevALBUTEROL HCL 1.25 MG/0.5 ML *CONC.* VIAL.NEB (XOPENEX CONC.) INH SCH ×4 (01:23→19:00)
--- NOTE | 2018-10-24 02:55 | NUR ---
Pt in bed w/ eyes closed resting comfortably. No signs of acute distress or discomfort noted. Pt on 6L O2 via Oximizer tolerating well w/ even and unlabored breathing and O2 sats @ 95%. Pt doesn't verbalize any needs at this time. Family sleeping at bedside. Bed is locked and in lowest position, call light w/in reach, will continue to monitor.
[2018-10-24 05:26] LABS: BASOPHILS % (AUTO) 0.3 % (0.0-2.0); EOSINOPHILS # (AUTO) 0.2 K/uL (0.0-0.4); EOSINOPHILS % (AUTO) 1.2 % (0.0-4.0); HEMATOCRIT 27.2 % (36-48); HEMOGLOBIN 8.4 g/dL (12.0-16.0); LYMPHOCYTES % (AUTO) 6.6 % (20.5-51.5); MEAN CORPUSCULAR HEMOGLOBIN 26 pg (27-31); MEAN CORPUSCULAR HGB CONC 31 % (32-36); MEAN CORPUSCULAR VOLUME 86 fL (79.0-98.0); MONOCYTES # (AUTO) 1.2 K/uL (0.0-1.0); MONOCYTES % (AUTO) 7.6 % (1.7-9.3); NEUTROPHILS # (AUTO) 13.2 K/uL (1.8-7.7); NEUTROPHILS % (AUTO) 84.3 % (40.0-70.0); PLATELET COUNT (AUTO) 106 K/uL (130-430); RED BLOOD CELL COUNT(AUTO) 3.17 MIL/uL (4.2-6.2); RED CELL DISTRIBUTION WIDTH 17.1 % (9.0-15.0); WHITE BLOOD COUNT (AUTO) 15.7 K/uL (4.8-10.8)
[2018-10-24 05:51] LABS: CALCIUM 8.6 mg/dL (8.4-11.0); CREATININE 1.13 mg/dL (0.55-1.30); POTASSIUM 3.3 mmol/L (3.5-5.1)
[2018-10-24 05:58] LABS: ALBUMIN 1.5 g/dL (3.4-4.8); PHOSPHORUS 3.5 mg/dL (2.7-4.5); TOTAL BILIRUBIN 5.1 mg/dL (0.0-1.0)
[2018-10-24] MEDS: LORazepam 2 MG/ML VIAL IVP PRN ×3 (07:08→21:48)
--- NOTE | 2018-10-24 07:20 | NUR ---
ENDORSEMENT Report given to USMAN Pringle using SBAR format and pt care was endorsed. Pt in bed w/ eyes close resting comfortably. No signs of acute distress or discomfort noted. Pt doesn't verbalize any needs at this time.
--- NOTE | 2018-10-24 07:20 | NUR ---
Report and patient received from [facility] shift nurse. Patient in bed sleeping at semifowler's position side rails x 2 up call light with in reach. sleeping at bedside. In no acute distress noted.
[2018-10-24] MEDS: METOCLOPRAMIDE HCL 10 MG/2 ML VIAL IVP PRN ×2 (10:23→16:54)
[2018-10-24] MEDS: FAT EMULSIONS 250 ML IV SCH (10:44)
[2018-10-24] MEDS ORDERED: POTASSIUM CHLORIDE 40 MEQ in NS 250 ML IV ONE (14:00)
--- NOTE | 2018-10-24 14:15 | NUR ---
Respiratory therapist Ally stated decreased Oxymizer to 5 liters of continuous oxygen.
[2018-10-24] MEDS ORDERED: COMMUNICATION ORDER XX SCH (14:30)
--- NOTE | 2018-10-24 14:30 | NUR ---
MD Quach at bedside. Informed of heart rate up to 142. No new orders.
--- NOTE | 2018-10-24 14:50 | NUR ---
Nutrition F/U Admitting Diagnosis Upper GI bleed Reviewed Pertinent Medical/Surgical Hx Medical Record Patient Primary RN Medical History Comment: Per updated MD note: GI bleeding, Acute Blood Loss Anemia, Anemia of chronic illness, Pneumonia, Metastatic Ovarian Mucinous Carcinoma, Multiple abdominal Surgeries, SBO, DVT in both legs, IVC filter, severe protein malnutrition, dysphagia on TPN Per updated MD note 10/24/18: Acute hypoxic respiratory failure, pneumonia, metastatic mucinous ovarian CA, GI bleed, anemia, chronic pain, hypoalbuminemia Subjective Information Pt seen sleeping in bed, +oximizer, w/ nurse and at bedside. Per RN report, pt is tolerating TPN which is infusing at 43 ml/hr. Per RN, pt is still being monitored until she will be transferred to hospice. Per EMR, I/O: 1006/1210 -204ml; IV total intake 190 ml per 12 hrs. Pt does not appear appropriate for invasive procedure for GT feeding as she is on palliative care. Current TPN regimen provides: 1148 kcal/day, 52 gm protein/day, 1152 ml total volume/day, and GIR: 2 gm CHO/kg/min. This meets 59% of lower end of estimated caloric needs and 80% of upper end of estimated protein needs. Pt is not yet meeting adequate nutrition w/ current TPN regimen. Nutrition education is not provided at this time. Current Diet Order/Nutrition Support Clear liquid, no red + D40%, AA10% at 43.75ml/hr, IL20% at 5ml/hr via central line Patient/Significant Other Able To Verbalize Education Provided Not Indicated Pertinent Medications fentanyl, MVI, reglan, lorazepam, piperacillin/tazobactam Pertinent Labs K 3.3 L, BG 118 H, POC BG 131 H, Alb 1.5 L, H/H 8.4 L/27.2 L Height (Feet) 5 feet Height (Inches) 4.00 inches Weight (Pounds) 143 pounds Weight (Calculated Kilograms) 64.062954 kilograms Patient Weight 64.864 kg Body Mass Index 24.54 kg/m2 Usual Weight 180 lbs %UBW 79 %IBW 119 [place]/Adjusted Body Weight 120 lb, 55 kg Recent Weight Change Yes - 37 lb wt loss in 9 months (20% severe wt loss) Weight Status Appropriate Gastrointestinal Symptoms None Last BM Oct 24, 2018 Usual Diet At Home TPN dependent, water, juices per . Skin Integrity Comment: Timi scale: 17; per nursing notes, 4+ pitting edema to bilateral foot Current % PO reported that pt takes in some clear liquid items Estimated Energy Expenditure (kcals/day) 5765-8513 kcal/day (30-35 kcal/kg CBW for Cancer) Estimated Protein Required (g/day) 65-98 gm/day (1-1.5 gm/kg CBW for Cancer) Estimated Fluid Required (l/day) per MD (fluid overload) Problem/Etiology/Signs/Symptoms Inability to ingest food r/t altered GI function AEB pt's family's report of small amount of liquid diet at home and TPN dependent. *Ongoing Expected Outcomes/Goals Monitor TPN intake and tolerance w/ goal of pt meeting at least 75% of estimated nutritional needs, labs trending WNL, normal GI function, skin integrity/wt maintenance. *Ongoing Dietitian Recommendations *If/when medically appropriate, recommend D40% AA10% at 75ml/hr (goal rate), IL20% at 5ml/hr via central line. Which will provide: 1824 kcal/day, 90 gm protein/day, 1940 ml total volume/day, and and GIR 3.5 gm CHO/kg/min. Which meets: 94% of upper end of estimated calorie needs and 92% of upper end of estimated protein needs. Follow Up High Risk: F/U in 2-3 days Signed: 10/24/18 at 1451 by Pretty EAST <Co-Signature Required> Co-Signed: 10/24/18 at [address]
--- NOTE | 2018-10-24 15:03 | NUR ---
Dietitian Recommendations *If/when medically appropriate, recommend D40% AA10% at 75ml/hr (goal rate), IL20% at 5ml/hr via central line. Which will provide: 1824 kcal/day, 90 gm protein/day, 1940 ml total volume/day, and and GIR 3.5 gm CHO/kg/min. Which meets: 94% of upper end of estimated calorie needs and 92% of upper end of estimated protein needs. LP, RD Please refer to Nutrition F/U for details.
[2018-10-24] MEDS ORDERED: ALBUMIN HUMAN 25% 50 ML IV ONE (15:15)
[2018-10-24] MEDS ORDERED: FUROSEMIDE 20 MG/2 ML VIAL IVP ONE (15:15)
--- NOTE | 2018-10-24 16:10 | NUR ---
Patient passed circular golf ball size dark red blood clot through rectum. Informed MD Quach.
[2018-10-24] MEDS ORDERED: K PHOS IV SCH ×8 (18:00)
[2018-10-24] MEDS ORDERED: [UNRECOGNIZED DRUG - OTHER] IV SCH ×8 (18:00)
[2018-10-24] MEDS ORDERED: SODIUM CHLORIDE IV SCH ×8 (18:00)
[2018-10-24] MEDS ORDERED: POTASSIUM CHLORIDE IV SCH ×8 (18:00)
[2018-10-24] MEDS ORDERED: TPN CENTRAL IV SCH ×8 (18:00)
[2018-10-24] MEDS: VANCOMYCIN HCL 1,500 MG in NS 250 ML IV SCH (18:10)
[2018-10-24] MEDS: fentaNYL 100 MCG/HR PATCH TD SCH (18:14)
--- NOTE | 2018-10-24 19:20 | NUR ---
Endorsed patient and gave report to on coming NOC shift nurse. Passed total of 5 blood clots dark red in color through rectum. Family aware, daughter and at bedside. Patient in bed side rails x 2 up call light with in reach in no acute distress noted.
--- NOTE | 2018-10-24 19:30 | NUR ---
PM Shift Assessment The patient is resting comfortably in bed. She is in no sign of distress. The daughter and are at the bedside. She is alert and oriented, lethargic at times. Breathing is even and unlabored bilaterally. She is on 5L O2 via oximizer and tolerating well. Oxygen saturation is 94%. She has a port-a-cath on the right chest infusing TPN and lipids. IV to right forearm IV fluids infusing with no signs of infiltration. G Tube to left abdomen with tubing draining to gravity. Skin dry and intact. The bed is locked and in the lowest position. Call light is within reach.
[2018-10-24] MEDS ORDERED: ONDANSETRON HCL 4 MG/2 ML VIAL IVP PRN ×2 (21:30→21:45)
[2018-10-24] MEDS ORDERED: ONDANSETRON HCL 4 MG/2 ML VIAL ONE (21:54)
--- NOTE | 2018-10-24 23:10 | NUR ---
CHG BATH GIVEN, PT TOLERATED CARE WELL.
[2018-10-25] VITALS (24 sets, daily range): BP systolic 90–167
[2018-10-25] MEDS: IPRATROPIUM BROM 0.5 MG/2.5 ML VIAL.NEB (ATROVENT) INH SCH ×4 (01:00→20:49)
[2018-10-25] MEDS: LevALBUTEROL HCL 1.25 MG/0.5 ML *CONC.* VIAL.NEB (XOPENEX CONC.) INH SCH ×4 (01:00→20:49)
--- NOTE | 2018-10-25 01:00 | NUR ---
COLOSTOMY Dark red blood clot, with moderate bleeding noted to colostomy site. Dressing saturated. Site was cleaned and a new dressing was applied. Will continue to monitor.
[2018-10-25] MEDS: PANTOPRAZOLE SODIUM 40 MG in NS 50 ML IV SCH ×5 (01:53→22:34)
--- NOTE | 2018-10-25 02:30 | NUR ---
PLEURX DRAIN Pts brought in pleurx drainage container and was able to access site. 100ml of red output was noted. New dressing applied. Pt tolerated care well.
[2018-10-25] MEDS: LORazepam 2 MG/ML VIAL IVP PRN ×4 (04:22→20:38)
[2018-10-25 05:14] LABS: CALCIUM 8.7 mg/dL (8.4-11.0); CREATININE 1.1 mg/dL (0.55-1.30); POTASSIUM 3.4 mmol/L (3.5-5.1)
[2018-10-25 05:15] LABS: BASOPHILS # (AUTO) 0.1 K/uL (0.0-0.2); BASOPHILS % (AUTO) 0.5 % (0.0-2.0); EOSINOPHILS # (AUTO) 0.2 K/uL (0.0-0.4); EOSINOPHILS % (AUTO) 1.1 % (0.0-4.0); HEMATOCRIT 24.8 % (36-48); HEMOGLOBIN 7.8 g/dL (12.0-16.0); LYMPHOCYTES # (AUTO) 1.1 K/uL (1.0-5.5); LYMPHOCYTES % (AUTO) 8.2 % (20.5-51.5); MEAN CORPUSCULAR HEMOGLOBIN 27 pg (27-31); MEAN CORPUSCULAR HGB CONC 31 % (32-36); MEAN CORPUSCULAR VOLUME 86 fL (79.0-98.0); MONOCYTES # (AUTO) 1.5 K/uL (0.0-1.0); MONOCYTES % (AUTO) 10.9 % (1.7-9.3); NEUTROPHILS # (AUTO) 10.9 K/uL (1.8-7.7); NEUTROPHILS % (AUTO) 79.3 % (40.0-70.0); PLATELET COUNT (AUTO) 101 K/uL (130-430); RED BLOOD CELL COUNT(AUTO) 2.87 MIL/uL (4.2-6.2); RED CELL DISTRIBUTION WIDTH 16.9 % (9.0-15.0); WHITE BLOOD COUNT (AUTO) 13.8 K/uL (4.8-10.8)
[2018-10-25 05:21] LABS: ALBUMIN 1.5 g/dL (3.4-4.8); PHOSPHORUS 3.6 mg/dL (2.7-4.5)
[2018-10-25] MEDS: PIPERACILLIN/TAZO 3.375/DEX-IS 50 ML IV SCH ×4 (06:34→23:44)
--- NOTE | 2018-10-25 07:15 | NUR ---
Opening Note Received plan of care from endorsing nurse Felisha and student nurse Radha via sbar. Completed bedside round.
--- NOTE | 2018-10-25 07:21 | NUR ---
ENDORSEMENT Pt care endorsed to dayshift RN using nursing SBAR.
[2018-10-25] MEDS ORDERED: K PHOS IV SCH ×16 (08:00→18:00)
[2018-10-25] MEDS ORDERED: TPN CENTRAL IV SCH ×16 (08:00→18:00)
[2018-10-25] MEDS ORDERED: [UNRECOGNIZED DRUG - OTHER] IV SCH ×16 (08:00→18:00)
[2018-10-25] MEDS ORDERED: SODIUM CHLORIDE IV SCH ×16 (08:00→18:00)
[2018-10-25] MEDS ORDERED: POTASSIUM CHLORIDE IV SCH ×16 (08:00→18:00)
[2018-10-25] MEDS: FAT EMULSIONS 250 ML IV SCH (11:03)
[2018-10-25] MEDS: FUROSEMIDE 100 MG in D5W 90 ML IV SCH (11:37)
[2018-10-25] MEDS ORDERED: KCL 20 mEq in 100 mL (PREMIX) 100 ML IV ONE (14:45)
--- NOTE | 2018-10-25 15:15 | NUR ---
Dr. Pulliam at bedside. No new orders.
--- NOTE | 2018-10-25 15:35 | NUR ---
Dr. Quach at bedside. Per Dr. Quach he will review and add orders. But no new orders at this time.
[2018-10-25] MEDS: ONDANSETRON HCL 4 MG/2 ML VIAL IVP SCH ×2 (17:03→22:33)
--- NOTE | 2018-10-25 19:15 | NUR ---
PM Shift Assessment Pt is alert and oriented but lethargic. Arousable to voice. Family at bedside. ST noted on monitor. O2 via oximizer @ 5L and tolerating well. Port-a-cath to right upper chest infusing TPN and lipids. IV to right forearm IV fluids infusing with no signs of infiltration. IV to left wrist with IVF infusing, no signs of infiltration noted. G Tube to left abdomen with tubing draining to gravity. Skin dry and intact. The bed is locked and in the lowest position. Call light is within reach.
--- NOTE | 2018-10-25 19:31 | NUR ---
Closing Note Plan of care given to endorsing nurse via SBAR, Felisha MARY completed at bedside.
[2018-10-25] MEDS: VANCOMYCIN HCL 1,500 MG in NS 250 ML IV SCH (20:10)
--- NOTE | 2018-10-25 20:15 | NUR ---
Protonix Drip turned off at this time in order to infuse Vancomycin IVPB. Vancomycin in not compatible with other IVF infusing at this time. Will continue Protonix Drip when Vancomycin is complete.
[2018-10-25] MEDS: POTASSIUM CHLORIDE 20 MEQ/PKT PACKET PO SCH (21:00)
[2018-10-25] MEDS: METOCLOPRAMIDE HCL 10 MG/2 ML VIAL IVP PRN (23:44)
[2018-10-26] VITALS (24 sets, daily range): BP systolic 11–141
[2018-10-26] MEDS: LORazepam 2 MG/ML VIAL IVP PRN ×7 (00:36→20:32)
[2018-10-26] MEDS: LevALBUTEROL HCL 1.25 MG/0.5 ML *CONC.* VIAL.NEB (XOPENEX CONC.) INH SCH ×4 (01:00→19:00)
[2018-10-26] MEDS: IPRATROPIUM BROM 0.5 MG/2.5 ML VIAL.NEB (ATROVENT) INH SCH ×4 (01:00→19:00)
[2018-10-26] MEDS: ONDANSETRON HCL 4 MG/2 ML VIAL IVP SCH ×4 (04:49→22:03)
[2018-10-26] MEDS: PANTOPRAZOLE SODIUM 40 MG in NS 50 ML IV SCH ×3 (04:49→11:30)
[2018-10-26 05:22] LABS: BASOPHILS # (AUTO) 0.1 K/uL (0.0-0.2); BASOPHILS % (AUTO) 0.7 % (0.0-2.0); EOSINOPHILS # (AUTO) 0.1 K/uL (0.0-0.4); HEMATOCRIT 28.1 % (36-48); HEMOGLOBIN 8.5 g/dL (12.0-16.0); LYMPHOCYTES # (AUTO) 1.1 K/uL (1.0-5.5); LYMPHOCYTES % (AUTO) 7.2 % (20.5-51.5); MEAN CORPUSCULAR HEMOGLOBIN 26 pg (27-31); MEAN CORPUSCULAR HGB CONC 30 % (32-36); MEAN CORPUSCULAR VOLUME 86 fL (79.0-98.0); MONOCYTES # (AUTO) 1.4 K/uL (0.0-1.0); MONOCYTES % (AUTO) 9.7 % (1.7-9.3); NEUTROPHILS # (AUTO) 11.9 K/uL (1.8-7.7); NEUTROPHILS % (AUTO) 81.4 % (40.0-70.0); PLATELET COUNT (AUTO) 116 K/uL (130-430); RED BLOOD CELL COUNT(AUTO) 3.25 MIL/uL (4.2-6.2); RED CELL DISTRIBUTION WIDTH 16.9 % (9.0-15.0); WHITE BLOOD COUNT (AUTO) 14.7 K/uL (4.8-10.8)
[2018-10-26 05:35] LABS: CALCIUM 8.9 mg/dL (8.4-11.0); CREATININE 1.07 mg/dL (0.55-1.30); POTASSIUM 3.3 mmol/L (3.5-5.1)
[2018-10-26] MEDS: PIPERACILLIN/TAZO 3.375/DEX-IS 50 ML IV SCH ×4 (05:36→23:53)
[2018-10-26 05:39] LABS: PHOSPHORUS 3.4 mg/dL (2.7-4.5)
--- NOTE | 2018-10-26 06:46 | NUR ---
NG CATH # 16 FR Ng catheter with 10 cc bulb inserted with use of sterile technique. Bulb inflated with 10 cc sterile water. Immediate return of 100cc yellow urine noted. Bedside drainage bag placed below level of bladder. Pt tolerated procedure well.
--- NOTE | 2018-10-26 07:11 | NUR ---
ENDORSEMENT Pt care endorsed to dayshift RN using nursing SBAR.
--- NOTE | 2018-10-26 07:20 | NUR ---
Received patient and report from NOC shift. Greeted patient. Patient in bed side rails x 3 up call light with in reach bed at lowest position. No acute distress noted. No complaining of pain. Educated patient and to use call light and request assistance to commode x 3, patient and agreed.
[2018-10-26] MEDS ORDERED: KCL 40 mEq in 100 mL (PREMIX) 100 ML IV ONE ×2 (08:00→08:40)
[2018-10-26] MEDS: POTASSIUM CHLORIDE 20 MEQ/PKT PACKET PO SCH (08:06)
[2018-10-26] MEDS: METOCLOPRAMIDE HCL 10 MG/2 ML VIAL IVP PRN (08:09)
--- NOTE | 2018-10-26 09:30 | NUR ---
[place] patient moaning, walked into room. Found patient sitting on floor. at bedside. Asked patient what happened, stated tried to go to commode but slid to floor. Assessed patient. No complaining of pain, no injuries noted. ROM of all extremities WNL for patient. Alert and oriented x 2 person, community. Addendum: 10/26/18 at 1347 by Yary Wren RN stated fell asleep. Educated patient and importance of using call light, assistance for bed side commode.
--- NOTE | 2018-10-26 09:35 | NUR ---
Paged MD Quach regarding patient.
--- NOTE | 2018-10-26 09:45 | NUR ---
Informed MD Quach regarding fall. Informed MD of pink reddish colored urine and for family request to discontinue IV continuos drip Protonix and start IVP Protonix. MD Quach ordered IVP protonix 40 mg every 12 hours, urine culture. Orders placed and carried out.
[2018-10-26] MEDS: FAT EMULSIONS 250 ML IV SCH (11:37)
[2018-10-26] MEDS: FUROSEMIDE 100 MG in D5W 90 ML IV SCH (11:51)
--- NOTE | 2018-10-26 12:00 | NUR ---
Informed oncologist Heraclio regarding family request to continue ativan. MD Pulliam new order benadryl 25 mg IVP every 2 hours PRN for anxiety. Orders placed and carried.
--- NOTE | 2018-10-26 13:00 | NUR ---
Removed left wrist IV per daughter request.
[2018-10-26] MEDS ORDERED: DIPHENHYDRAMINE INJ 50 MG/ML VIAL ONE (13:29)
[2018-10-26] MEDS: VANCOMYCIN HCL 1,500 MG in NS 250 ML IV SCH (16:02)
[2018-10-26] MEDS: DIPHENHYDRAMINE INJ 50 MG/ML VIAL IVP PRN ×2 (16:04→19:47)
--- NOTE | 2018-10-26 16:45 | NUR ---
IV. ANOTHER IV INSERTED ASEPTICALLY INTO RIGHT WRIST, USING 20 GAUGE CATHETER, GOOD BLOOD RETURN NOTED.
[2018-10-26] MEDS ORDERED: POTASSIUM CHLORIDE IV SCH ×8 (18:00)
[2018-10-26] MEDS ORDERED: SODIUM CHLORIDE IV SCH ×8 (18:00)
[2018-10-26] MEDS ORDERED: TPN CENTRAL IV SCH ×8 (18:00)
[2018-10-26] MEDS ORDERED: [UNRECOGNIZED DRUG - OTHER] IV SCH ×8 (18:00)
--- NOTE | 2018-10-26 19:10 | NUR ---
Start of shift assessment Received family resting in bed with eyes close, opens eyes to verbal stimuli. Patient is lethargic oriented only to name. No respi distress noted and c/o pain at this time. All extremities are weak, bedrest. Patient on HUMAN RESOURCES ASSOCIATE connected to RL abdomen. IV noted to R wrist and R f/a G 20, flushing well and with good blood return. Patient has a ileostomy connected to drain bag via gravity. Patient also has a f/c with about 30cc of pinkish urine in the bag. R subclavian port a cath was also noted with TPN and lipid patent. Discussed plan plan of care with and verbalized understanding. Call light in reach, bed alarm on and side rails up x3. Will closely monitor.
--- NOTE | 2018-10-26 19:10 | NUR ---
Gave report and endorsement of patient to oncoming nurse. Patient in bed sleeping with side rails up x 3 call light in reach. In no acute distress. No complaining of pain.
--- NOTE | 2018-10-26 19:50 | NUR ---
Admin Benadryl for anxiety Patient attempted to get but appear drowsy and weak. Admin Benadryl PRN for anxiety. at bedside.
[2018-10-26] MEDS: PANTOPRAZOLE SODIUM 40 MG/VIAL (PROTONIX) IVP SCH (20:31)
--- NOTE | 2018-10-26 20:35 | NUR ---
Admin Ativan for anxiety Patient having anxiety trying to get up from bed but looks drowsy and weak. Admin Ativan IV PRN for anxiety. Bed alarm on, side rails up x3, and bed in low position. Will continue to monitor. at bedside.
[2018-10-27] VITALS (24 sets, daily range): BP systolic 94–135
[2018-10-27] MEDS: DIPHENHYDRAMINE INJ 50 MG/ML VIAL IVP PRN ×7 (00:27→23:34)
--- NOTE | 2018-10-27 00:32 | NUR ---
Admin Benadryl for anxiety Patient attempted to get up from bed with eyes close, appear drowsy. Administered Benadryl IV for anxiety. Call light in reach, bed alarm on and side rails up x3 for safety. Will cont to monitor. at bedside.
[2018-10-27] MEDS: LevALBUTEROL HCL 1.25 MG/0.5 ML *CONC.* VIAL.NEB (XOPENEX CONC.) INH SCH ×4 (01:00→20:37)
[2018-10-27] MEDS: IPRATROPIUM BROM 0.5 MG/2.5 ML VIAL.NEB (ATROVENT) INH SCH ×4 (01:00→20:37)
[2018-10-27] MEDS: LORazepam 2 MG/ML VIAL IVP PRN ×6 (02:04→23:01)
--- NOTE | 2018-10-27 02:30 | NUR ---
Admin Ativan for anxiety Patient is trying to get up from bed unassisted but appear drowsy. Admin Ativan IV for anxiety. Bed alarm on, bed in low position, and side rails up x3 for safety. Will cont to monitor. at bedside.
--- NOTE | 2018-10-27 03:07 | NUR ---
Dressing change to pleurx drain and colostomy. Changed dressing as ordered. Tolerated well.
[2018-10-27] MEDS: ONDANSETRON HCL 4 MG/2 ML VIAL IVP SCH ×4 (04:28→22:55)
--- NOTE | 2018-10-27 05:40 | NUR ---
Admin Benadryl PRN for anxiety Patient is restless in bed, family requested Benadryl. Call light in reach, bed alarm on and side rails up x3. Will cont to monitor.
[2018-10-27 06:13] LABS: BASOPHILS # (AUTO) 0.1 K/uL (0.0-0.2); BASOPHILS % (AUTO) 0.6 % (0.0-2.0); EOSINOPHILS # (AUTO) 0.1 K/uL (0.0-0.4); HEMATOCRIT 27.7 % (36-48); HEMOGLOBIN 8.5 g/dL (12.0-16.0); LYMPHOCYTES # (AUTO) 1.3 K/uL (1.0-5.5); LYMPHOCYTES % (AUTO) 9.1 % (20.5-51.5); MEAN CORPUSCULAR HEMOGLOBIN 26 pg (27-31); MEAN CORPUSCULAR HGB CONC 31 % (32-36); MEAN CORPUSCULAR VOLUME 85 fL (79.0-98.0); MONOCYTES # (AUTO) 1.4 K/uL (0.0-1.0); MONOCYTES % (AUTO) 10.4 % (1.7-9.3); NEUTROPHILS # (AUTO) 10.9 K/uL (1.8-7.7); NEUTROPHILS % (AUTO) 78.9 % (40.0-70.0); PLATELET COUNT (AUTO) 126 K/uL (130-430); RED BLOOD CELL COUNT(AUTO) 3.27 MIL/uL (4.2-6.2); RED CELL DISTRIBUTION WIDTH 16.6 % (9.0-15.0); WHITE BLOOD COUNT (AUTO) 13.9 K/uL (4.8-10.8)
[2018-10-27 06:46] LABS: ALBUMIN 1.4 g/dL (3.4-4.8); CALCIUM 8.9 mg/dL (8.4-11.0); CREATININE 1.2 mg/dL (0.55-1.30); PHOSPHORUS 3.7 mg/dL (2.7-4.5)
--- NOTE | 2018-10-27 06:48 | NUR ---
End of shift notes Patient is resting in bed, awake but eyes are close with at bedside. No signs of respi distress and no c/o pain noted. All needs met and anticipated by nurses. Bed alarm on, side rails up x3 and call light in reach for safety. Will endorse care to incoming nurse.
[2018-10-27 07:08] LABS: POTASSIUM 2.9 mmol/L (3.5-5.1)
--- NOTE | 2018-10-27 07:25 | NUR ---
Call out to Dr. Quach to report labs.
--- NOTE | 2018-10-27 07:50 | NUR ---
Pt requesting to get OOB. I informed both pt and her that I did not feel that she is safe to get OOB since she fell yesterday. The said that was because no one was helping her. I again said, that I thought may be sitting over the side of the bed would be safer and please lets not get her OOB. Pt sat over side of bed for 5 minutes and fell asleep according to bedside RN.
[2018-10-27] MEDS: PANTOPRAZOLE SODIUM 40 MG/VIAL (PROTONIX) IVP SCH ×2 (08:21→20:56)
--- NOTE | 2018-10-27 09:00 | NUR ---
Call out to Dr. Quach to report labs.
[2018-10-27] MEDS ORDERED: KCL 40 mEq in 100 mL (PREMIX) 100 ML IV ONE (09:30)
--- NOTE | 2018-10-27 09:45 | NUR ---
Continuation of care RN to resume care. Patient asleep in bed with @ bedside. Patient on monitoring engineer with sinus tach. Patient on 6L oxygen via oximizer breathing evenly and unlabored. Patient has multiple IV sites with right AC 20 gauge patent, flushing well, and saline-locked, right wrist 20 gauge infusing lasix 2 mg/hr, right lower abd [employer] pump (dilaudid) from home, a right subclavian port-a-cath infusing TPN @ 75ml/hr and lipids @ 10 ml/hr. Patient also has a g-tube connected to catheter to draining dark-green colored gastric contents to gravity. Patient has a millan catheter draining josé miguel-colored urine. Safety precautions enforced. Call light in reach.
--- NOTE | 2018-10-27 10:00 | NUR ---
MD Rounds Dr. Buenrostro @ bedside to examine patient.
[2018-10-27] MEDS ORDERED: POTASSIUM CHLORIDE 40 MEQ in 0.45% NS 250 ML IV ONE (10:15)
[2018-10-27] MEDS: FAT EMULSIONS 250 ML IV SCH (10:25)
--- NOTE | 2018-10-27 11:38 | NUR ---
Witnessed on camera, assisting pt OOB to BSC despite staff request to not get pt OOB. Pt and did not call for help. Bedside RN went in to the room to assist. Pt weak, HR 140-150's and sats 91% on 5L oximiser 02 with activity. Lasix drip infusing with josé miguel urine in millan bag. Will continue to monitor pt.
[2018-10-27] MEDS: FUROSEMIDE 100 MG in D5W 90 ML IV SCH (11:51)
--- NOTE | 2018-10-27 12:33 | NUR ---
Witnessed via camera, pts assisting his to the BSC without calling staff for help. Bedside RN went in to offer help and offer declined. HR 140's when OOB and 02 sats 95%. 02 6L oximiser.
--- NOTE | 2018-10-27 12:40 | NUR ---
Rounds Dr. Quach @ bedside.
--- NOTE | 2018-10-27 13:31 | NUR ---
GABRIELE NIXON Received msg from Constance @ [facility] from Saturday, ph [phone]. Called Constance & lt msg updating on pt info requested.
[2018-10-27] MEDS: METOCLOPRAMIDE HCL 10 MG/2 ML VIAL IVP PRN (13:34)
--- NOTE | 2018-10-27 13:53 | NUR ---
Nutrition F/U Admitting Diagnosis Upper GI bleed Reviewed Pertinent Medical/Surgical Hx Medical Record Patient Primary RN Medical History Comment: Per updated MD note: GI bleeding, Acute Blood Loss Anemia, Anemia of chronic illness, Pneumonia, Metastatic Ovarian Mucinous Carcinoma, Multiple abdominal Surgeries, SBO, DVT in both legs, IVC filter, severe protein malnutrition, dysphagia on TPN Per updated MD note 10/24/18: Acute hypoxic respiratory failure, pneumonia, metastatic mucinous ovarian CA, GI bleed, anemia, chronic pain, hypoalbuminemia 10/26/18 MD Note: Anasarca-not improving Subjective Information Pt seen sleeping in bed, +oximizer, w/ at bedside. Per RN report, pt is tolerating TPN which is infusing at 75 ml/hr. RN reported that pt has not eaten anything from Clear liquid tray. reported that pt drinks water and Gatorade brought in by family. He denied any N/V this morning. Current TPN provides: 2064 kcal, 90 gm protein and GIR 3.47 gm CHO/kg/min which meets 91% of upper end of estimated calorie needs and 92% of upper end of estimated protein needs. TPN remains adequate and appropriate at this time. Current Diet Order/Nutrition Support Clear liquid, no red x 9 days + D40%, AA10% at 75ml/hr, IL20% at 10ml/hr via central line Patient/Significant Other Able To Verbalize Education Provided Not Indicated Pertinent Medications fentanyl, MVI, reglan, vancomycin, protonix IV Pertinent Labs K 2.9 L, BG 119 H, POC BG 114 H, Alb 1.4 L, H/H 8.5 L/27.7 L, WBC 13.9H, BUN 32H, AST 46H, ALP 174H, TG 235H Height (Feet) 5 feet Height (Inches) 4.00 inches Weight (Pounds) 158 pounds (10/22/18) Weight (Calculated Kilograms) 71.923 kilograms Patient Weight 71.923 kg Body Mass Index 27.2 kg/m2 Usual Weight 180 lbs %UBW 87 %IBW 132 [place]/Adjusted Body Weight 120 lb, 55 kg Recent Weight Change Yes - 37 lb wt loss in 9 months (20% severe wt loss) Weight Status Appropriate Gastrointestinal Symptoms None Last BM Oct 24, 2018 Usual Diet At Home TPN dependent, water, juices per . Skin Integrity Comment: Timi scale: 16; per nursing notes,lower sacrum w/ redness, 3+ pitting edema to bilateral foot, 2+ pitting edema to BUE. Current % PO reported that pt drinks water and Gatorade. Estimated Energy Expenditure (kcals/day) 1953-4917 kcal/day (30-35 kcal/kg CBW for Cancer) Estimated Protein Required (g/day) 65-98 gm/day (1-1.5 gm/kg CBW for Cancer) Estimated Fluid Required (l/day) per MD (fluid overload) Problem/Etiology/Signs/Symptoms Inability to ingest food r/t altered GI function AEB pt's family's report of small amount of liquid diet at home and TPN dependent. *Ongoing Expected Outcomes/Goals Monitor TPN intake and tolerance w/ goal of pt meeting at least 75% of estimated nutritional needs, labs trending WNL, normal GI function, skin integrity/wt maintenance. *Ongoing Dietitian Recommendations *Recommend continuing D40% AA10% at 75ml/hr (goal rate), IL20% at 5ml/hr via central line. Which will provide: 2064 kcal/day, 90 gm protein/day, 2040 ml total volume/day, and and GIR 3.47 gm CHO/kg/min. Which meets: 91% of upper end of estimated calorie needs and 92% of upper end of estimated protein needs. Follow Up High Risk: F/U in 2-3 days
--- NOTE | 2018-10-27 14:08 | NUR ---
Dietitian Recommendations *Recommend continuing D40% AA10% at 75ml/hr (goal rate), IL20% at 5ml/hr via central line. Which will provide: 2064 kcal/day, 90 gm protein/day, 2040 ml total volume/day, and and GIR 3.47 gm CHO/kg/min. Which meets: 91% of upper end of estimated calorie needs and 92% of upper end of estimated protein needs. Please see Nutrition F/U note for details. PRADIP MARTÍNEZ Addendum: 10/27/18 at [address] Continuing IL 20% at 10ml/hr via Central line.
[2018-10-27] MEDS: VANCOMYCIN HCL 1,500 MG in NS 250 ML IV SCH (16:30)
--- NOTE | 2018-10-27 17:10 | NUR ---
CHG CHG bath given and linens changed. Patient tolerated procedure well.
[2018-10-27] MEDS ORDERED: fentaNYL 75 MCG/HR PATCH TD SCH (18:00)
[2018-10-27] MEDS ORDERED: POTASSIUM CHLORIDE IV SCH ×8 (18:00)
[2018-10-27] MEDS ORDERED: SODIUM CHLORIDE IV SCH ×8 (18:00)
[2018-10-27] MEDS ORDERED: TPN CENTRAL IV SCH ×8 (18:00)
[2018-10-27] MEDS ORDERED: [UNRECOGNIZED DRUG - OTHER] IV SCH ×8 (18:00)
--- NOTE | 2018-10-27 19:19 | NUR ---
Closing Note Endorsed patient to night order selector RN using SBAR format. Patient asleep in bed with family @ bedside. No signs of acute distress @ this time. Safety precautions enforced. Call light in reach.
--- NOTE | 2018-10-27 19:30 | NUR ---
The patient is resting comfortably in bed with eyes closed. Pt is alert and oriented x2, lethargic and confused at times. Oxygen is at 10L via oximizer tolerating well with oxygen saturation 94%. She has a colostomy with a clean, dry and intact dressing and ileostomy with a drainage bag. She has a g-tube draining by gravity. There is a Pleurx drain on the left lower abdomen that is covered by an occlusive dressing. Dressing clean, dry and intact. The patient has a dilaudid B[employer]IST[employer] pump from home that is inserted in the lower right abdomen. She also has a port-a-cath in the right subclavian that has TPN and lipids infusing. There is a 20 g IV in the left wrist infusing well with no sign of redness or swelling. Dressings are clean, dry and intact. Pt has a millan catheter draining by gravity secured to the patient's leg. The bed is locked in the lowest position with side rails up. Call light is within reach.
--- NOTE | 2018-10-27 23:15 | NUR ---
TALKED TO , AND WANTS TO TAKE PT HOME TOMORROW.REQUESTING HELP IN ARRANGING WITH HOSPICE AND TRANSPORT.MESSAGE LEFT TO CASE MGT, EXT #[id number].
[2018-10-28] VITALS (21 sets, daily range): BP systolic 100–150
[2018-10-28] MEDS: LevALBUTEROL HCL 1.25 MG/0.5 ML *CONC.* VIAL.NEB (XOPENEX CONC.) INH SCH ×4 (00:28→19:00)
[2018-10-28] MEDS: IPRATROPIUM BROM 0.5 MG/2.5 ML VIAL.NEB (ATROVENT) INH SCH ×4 (00:28→19:00)
[2018-10-28] MEDS: LORazepam 2 MG/ML VIAL IVP PRN ×6 (01:24→20:24)
[2018-10-28] MEDS: DIPHENHYDRAMINE INJ 50 MG/ML VIAL IVP PRN ×6 (02:23→22:17)
[2018-10-28] MEDS: ONDANSETRON HCL 4 MG/2 ML VIAL IVP SCH ×4 (04:34→22:17)
[2018-10-28 06:12] LABS: BASOPHILS # (AUTO) 0.1 K/uL (0.0-0.2); BASOPHILS % (AUTO) 0.8 % (0.0-2.0); EOSINOPHILS # (AUTO) 0.1 K/uL (0.0-0.4); HEMATOCRIT 25.7 % (36-48); LYMPHOCYTES # (AUTO) 1.1 K/uL (1.0-5.5); MEAN CORPUSCULAR HEMOGLOBIN 26 pg (27-31); MEAN CORPUSCULAR HGB CONC 31 % (32-36); MEAN CORPUSCULAR VOLUME 85 fL (79.0-98.0); MONOCYTES # (AUTO) 1.5 K/uL (0.0-1.0); MONOCYTES % (AUTO) 10.9 % (1.7-9.3); NEUTROPHILS % (AUTO) 79.3 % (40.0-70.0); PLATELET COUNT (AUTO) 140 K/uL (130-430); RED BLOOD CELL COUNT(AUTO) 3.02 MIL/uL (4.2-6.2); RED CELL DISTRIBUTION WIDTH 17.1 % (9.0-15.0); WHITE BLOOD COUNT (AUTO) 13.9 K/uL (4.8-10.8)
[2018-10-28 06:38] LABS: CALCIUM 8.6 mg/dL (8.4-11.0); CREATININE 1.18 mg/dL (0.55-1.30); PHOSPHORUS 3.4 mg/dL (2.7-4.5); POTASSIUM 3.1 mmol/L (3.5-5.1)
--- NOTE | 2018-10-28 07:13 | NUR ---
ENDORSEMENT Pt care endorsed to dayshift RN using nursing SBAR.
[2018-10-28] MEDS ORDERED: KCL 40 mEq in 100 mL (PREMIX) 100 ML IV ONE ×2 (07:30→09:00)
--- NOTE | 2018-10-28 07:50 | NUR ---
AM ASSESSMENT. PT SEEN LEANING HER BODY FORWARD, STATED "SHE WANTS TO GET OUT," TALKED TO PATIENT WHILE GIVING HER A MILD JUDAISM MASSAGE TO RELAX HER, R.T. CAME IN FOR PT'S NEBULIZER TREATMENT, SHE ATTEMPTED TO REMOVE THE DEVICE, ALLOWED HER TO JUST TO LEAVE IT ON AND OFF SHE DESIRED. PATIENT COMPLETED HER TREATMENT.
--- NOTE | 2018-10-28 08:10 | NUR ---
Hospice Eval order received from Dr. Quach.
--- NOTE | 2018-10-28 08:15 | NUR ---
Hospice Eval Family wishes for pt to be placed on hospice today. They chose [facility] [phone]. I called and spoke with Elizabeth, the director of Hospice. Face sheet, med list and H/P faxed [phone] for evaluation.
--- NOTE | 2018-10-28 08:50 | NUR ---
Social Service Note: FIRE OFFICIAL received hospice order; pt's information and order has been faxed to [facility] ([phone] f.[phone]). Pt was on service with [facility] and family wishes to continue with [facility] for [facility] care.
[2018-10-28] MEDS: PANTOPRAZOLE SODIUM 40 MG/VIAL (PROTONIX) IVP SCH ×2 (08:55→20:02)
--- NOTE | 2018-10-28 08:56 | NUR ---
ANXIETY. PT TURNING HER ARM TOWARDS THE OPPOSITE SIDE, AT BEDSIDE, HOLDING DOWN HER ARM, MEDICATED PT WITH BENADRYL 25 MG IVP.
--- NOTE | 2018-10-28 09:40 | NUR ---
CODING TECH O2 TITRATED TO 8L VIA OXYMIZER, DR GARDNER CAME IN TO EXAMINE PT.
--- NOTE | 2018-10-28 13:11 | NUR ---
DME. Patient's [facility] planning to get back home, waiting for equipment to be set up today between 2-4 PM.
--- NOTE | 2018-10-28 13:30 | NUR ---
STATUS CHANGE. TRANSFERRED PT TO MED SURG STATUS.
--- NOTE | 2018-10-28 14:10 | NUR ---
Social Service Note: DRUM BARKER OPERATOR has arranged S ambulance transport with [facility] ([phone]); oyster picker at 5:30pm. DRUM BARKER OPERATOR spoke to Tunde Vela ([phone]) through pt's insurance who stated that authorization was not required for ambulance transportation.
--- NOTE | 2018-10-28 15:22 | NUR ---
MEDS. ATIVAN 0.5 MG IVP GIVEN, PT ATTEMPTED TO GET OUT OF THE BED, CALL LIGHT IN EASY REACH, PT INSISTING TO GET OUT.
--- NOTE | 2018-10-28 16:05 | NUR ---
Received phone call from Marcus pts and the pain med and nausea med will not be delivered to the home until tomorrow. Pt will remain in ICU under MS status per house mover. Ambulance placed on "Will Call" status [phone]. Spoke with Teresa.
[2018-10-28] MEDS: FUROSEMIDE 100 MG in D5W 90 ML IV SCH (16:10)
--- NOTE | 2018-10-28 16:42 | NUR ---
Hospice contact info [facility] [phone] [facility] -[facility] cell [phone] [facility] - [facility] already authorized and on will call [phone]
[2018-10-28] MEDS: VANCOMYCIN HCL 1,500 MG in NS 250 ML IV SCH (16:52)
[2018-10-28] MEDS: D10W 1,000 ML IV SCH (16:58)
[2018-10-28] MEDS ORDERED: [UNRECOGNIZED DRUG - OTHER] IV SCH ×8 (18:00)
[2018-10-28] MEDS ORDERED: SODIUM CHLORIDE IV SCH ×8 (18:00)
[2018-10-28] MEDS ORDERED: TPN CENTRAL IV SCH ×8 (18:00)
[2018-10-28] MEDS ORDERED: POTASSIUM CHLORIDE IV SCH ×8 (18:00)
--- NOTE | 2018-10-28 19:49 | NUR ---
PM Assessment Pt laying supine in bed w/ at bedside. AAO, but confused at times.Pt insist on getting out of bed. Sinus tach shown on monitor. Pt on Oxymizer @8L saturation at 94%. No s/s of distress noted. Pt no c/o of pain at this time. Pt has R wrist 20g running Lasix Drip @2mL/hr. Pt came in with Rt subclavian portacath that is now infusing D10% @45ml/hr, a Rt Lower ABD IV that is running Dilaudid on a TESTER COMPRESSED GASES pump which was set up by hospice care and is being managed by Pt at bedside. IV sites C/D/I, no s/s of infiltration noted. Pt has G-tube in place draining fluid to gravity. Pt has a PleurX drainage site that is being managed by the family. Pt has Davison catheter in place, draining dark, brown urine to gravity. Pt has a colostomy and ileostomy. No drainage noted from colostomy. Minimal yellow drainage draining from ileostomy. Pt has Fentanyl patch in place in CHIQUIS. Bed locked in lowest position, safety precautions in place and call light in reach. Will continue to monitor.
[2018-10-29] VITALS (14 sets, daily range): BP systolic 90–114
[2018-10-29] MEDS: IPRATROPIUM BROM 0.5 MG/2.5 ML VIAL.NEB (ATROVENT) INH SCH ×3 (01:00→13:33)
[2018-10-29] MEDS: LevALBUTEROL HCL 1.25 MG/0.5 ML *CONC.* VIAL.NEB (XOPENEX CONC.) INH SCH ×3 (01:00→13:33)
--- NOTE | 2018-10-29 01:30 | NUR ---
RN Round Pt in bed asleep. No c/o of N/V at this time. VSS. NO s/s of distress noted. Pt remains on 8L Oximizer. Will continue to monitor.
[2018-10-29] MEDS: LORazepam 2 MG/ML VIAL IVP PRN ×3 (02:43→16:28)
[2018-10-29] MEDS: DIPHENHYDRAMINE INJ 50 MG/ML VIAL IVP PRN ×3 (02:46→14:17)
--- NOTE | 2018-10-29 04:20 | NUR ---
RN Round Pt in bed asleep. No s/s of distress noted. Pt not c/o of any pain at this time. VSS. Remains on 8L Oximizer. Will continue to monitor.
[2018-10-29] MEDS: ONDANSETRON HCL 4 MG/2 ML VIAL IVP SCH ×2 (05:10→10:34)
--- NOTE | 2018-10-29 06:25 | NUR ---
Closing Note Pt in bed. No c/o of N/V at this time. Pt remains ST, on 8L Oximizer, saturating in the mid 90s. No s/s of distress noted at this time. Pt has R wrist 20g in place, running Lasix Drip @ 2mg/hr. Pt has Port-a-cath running D10W @45ml/hr. Sites C/D/I, no s/s of infiltration noted. Pt has Left abdomen IV running Dilaudid on WINE MAKER pump, which is being managed by Pt and family. Fentanyl Patch noted on CHIQUIS. G-tube in place draining green drainage. Colostomy and ileostomy noted. No drainage from colostomy, and minimal green drainage from ileostomy. Pt has Davison catheter draining tea colored urine to gravity. Bed locked in lowest position, safety precautions in place, and call light in reach. Will endorse to oncoming nurse.
[2018-10-29 06:44] LABS: ALBUMIN 1.4 g/dL (3.4-4.8); CREATININE 1.11 mg/dL (0.55-1.30); PHOSPHORUS 4.6 mg/dL (2.7-4.5); TOTAL BILIRUBIN 7.7 mg/dL (0.0-1.0)
[2018-10-29 06:58] LABS: POTASSIUM 2.9 mmol/L (3.5-5.1)
--- NOTE | 2018-10-29 07:01 | NUR ---
CALLED PAGED DR HOLLAND REGARDING CRITICAL LABS
[2018-10-29 07:05] LABS: BASOPHILS # (AUTO) 0.1 K/uL (0.0-0.2); EOSINOPHILS # (AUTO) 0.2 K/uL (0.0-0.4); EOSINOPHILS % (AUTO) 1.3 % (0.0-4.0); HEMATOCRIT 24.6 % (36-48); HEMOGLOBIN 7.7 g/dL (12.0-16.0); LYMPHOCYTES % (AUTO) 7.1 % (20.5-51.5); MEAN CORPUSCULAR HEMOGLOBIN 27 pg (27-31); MEAN CORPUSCULAR HGB CONC 32 % (32-36); MEAN CORPUSCULAR VOLUME 85 fL (79.0-98.0); MONOCYTES # (AUTO) 1.6 K/uL (0.0-1.0); MONOCYTES % (AUTO) 11.4 % (1.7-9.3); NEUTROPHILS % (AUTO) 79.2 % (40.0-70.0); PLATELET COUNT (AUTO) 152 K/uL (130-430); RED BLOOD CELL COUNT(AUTO) 2.91 MIL/uL (4.2-6.2); RED CELL DISTRIBUTION WIDTH 16.9 % (9.0-15.0); WHITE BLOOD COUNT (AUTO) 13.9 K/uL (4.8-10.8)
--- NOTE | 2018-10-29 07:15 | NUR ---
Received patient and report from NOC nurse. In bed in no acute distress noted.
--- NOTE | 2018-10-29 07:28 | NUR ---
Endorsement Report given to oncoming nurse at bedside via SBAR approach.
--- NOTE | 2018-10-29 07:34 | NUR ---
REPAGED DR HOLLAND REGARDING CRITICAL LABS SPOKE WITH JOANNA
--- NOTE | 2018-10-29 09:07 | NUR ---
Notified MD Quach regarding potassium 2.9, new order potassium 40 mEq IV. Orders placed and carried out.
[2018-10-29] MEDS ORDERED: KCL 40mEq in D5/0.45NS 1000 mL 1,000 ML IV SCH (09:15)
[2018-10-29] MEDS ORDERED: POTASSIUM CHLORIDE 40 MEQ in NS 250 ML IV ONE (09:45)
[2018-10-29] MEDS: PANTOPRAZOLE SODIUM 40 MG/VIAL (PROTONIX) IVP SCH (10:18)
[2018-10-29] MEDS: FUROSEMIDE 100 MG in D5W 90 ML IV SCH (11:55)
[2018-10-29] MEDS: METOCLOPRAMIDE HCL 10 MG/2 ML VIAL IVP PRN (14:19)
[2018-10-29] MEDS: D10W 1,000 ML IV SCH (14:30)
--- NOTE | 2018-10-29 15:45 | NUR ---
Hola schmitt, called private transport to pick patient up, stated ETA 1645. Informed family at bedside.
--- NOTE | 2018-10-29 16:20 | NUR ---
[facility] transport arrived on site.
--- NOTE | 2018-10-29 16:21 | NUR ---
Nutrition F/U Admitting Diagnosis Upper GI bleed Reviewed Pertinent Medical/Surgical Hx Medical Record Patient Primary RN Medical History Comment: Per updated MD note: GI bleeding, Acute Blood Loss Anemia, Anemia of chronic illness, Pneumonia, Metastatic Ovarian Mucinous Carcinoma, Multiple abdominal Surgeries, SBO, DVT in both legs, IVC filter, severe protein malnutrition, dysphagia on TPN Per updated MD note 10/24/18: Acute hypoxic respiratory failure, pneumonia, metastatic mucinous ovarian CA, GI bleed, anemia, chronic pain, hypoalbuminemia 10/26/18 MD Note: Anasarca-not improving 10/29/18 MD Note: Pt being managed w/ goal of comfort; will be moved to hospice at any time Subjective Information Per RN report, TPN has been turned off because pt is due to go home today with the care of hospice. Current Diet Order/Nutrition Support Clear liquid, no red x11 days Patient/Significant Other Able To Verbalize Education Provided Not Indicated Pertinent Medications fentanyl, MVI, reglan, vancomycin, protonix IV, zofran Pertinent Labs K 2.9 L, Alb 1.4 L, H/H 7.7 L/24.6 L, WBC 13.9H, BUN 32H, AST 52 H, ALP 173 H Height (Feet) 5 feet Height (Inches) 4.00 inches Weight (Pounds) 158 pounds (10/22/18) Weight (Calculated Kilograms) 71.923 kilograms Patient Weight 71.923 kg Body Mass Index 27.2 kg/m2 Usual Weight 180 lbs %UBW 87 %IBW 132 [place]/Adjusted Body Weight 120 lb, 55 kg Recent Weight Change Yes - 37 lb wt loss in 9 months (20% severe wt loss) Weight Status Appropriate Gastrointestinal Symptoms None Last BM N/A Usual Diet At Home TPN dependent, water, juices per . Skin Integrity Comment: Timi scale: 14; per nursing notes 2+ pitting edema to bilateral foot, 1+ pitting edema to BUE. Current % PO reported that pt drinks water and Gatorade. Estimated Energy Expenditure (kcals/day) 1834-4868 kcal/day (30-35 kcal/kg CBW for Cancer) Estimated Protein Required (g/day) 65-98 gm/day (1-1.5 gm/kg CBW for Cancer) Estimated Fluid Required (l/day) per MD (fluid overload) Problem/Etiology/Signs/Symptoms Inability to ingest food r/t altered GI function AEB pt's family's report of small amount of liquid diet at home and TPN dependent. *Ongoing Expected Outcomes/Goals Monitor TPN intake and tolerance w/ goal of pt meeting at least 75% of estimated nutritional needs, labs trending WNL, normal GI function, skin integrity/wt maintenance. *Ongoing Dietitian Recommendations * Recommend continuing clear liquid, no red diet per MD * If medically appropriate, consider continuing D40% AA10% at 75ml/hr (goal rate), IL20% at 5ml/hr via central line. Which will provide: 2064 kcal/day, 90 gm protein/day, 2040 ml total volume/day, and and GIR 3.47 gm CHO/kg/min. Which meets: 91% of upper end of estimated calorie needs and 92% of upper end of estimated protein needs. Follow Up High Risk: F/U in 2-3 days Signed: 10/29/18 at 1624 by Pretty EAST <Co-Signature Required> Co-Signed: 10/29/18 at [address]
--- NOTE | 2018-10-29 16:50 | NUR ---
[facility] transportation left site with patient on gurney on oximizer 8/liters with . Daughter thank for care given.
--- NOTE | 2018-10-29 17:22 | NUR ---
Dietitian Recommendations * Recommend continuing clear liquid, no red diet per MD * If medically appropriate, consider continuing D40% AA10% at 75ml/hr (goal rate), IL20% at 5ml/hr via central line. Which will provide: 2064 kcal/day, 90 gm protein/day, 2040 ml total volume/day, and and GIR 3.47 gm CHO/kg/min. Which meets: 91% of upper end of estimated calorie needs and 92% of upper end of estimated protein needs. LP, RD Please refer to Nutrition F/U for details.
== END 2018-10-29 17:03 | disposition home health service (06) | DRG 377 ==
LOC: SED 15:53 → STU 18:09 → SIC 10-20 06:34
PROVIDERS: ADMIT Internal Medicine; ATTEND Internal Medicine
PROC: 30233N1 Transfusion of Nonautologous Red Blood Cells into Peripheral Vein, Percutaneous Approach (ICD-10-PCS; principal; 2018-10-18)
DX: K92.2 Gastrointestinal hemorrhage, unspecified (principal); J18.9 Pneumonia, unspecified organism; J96.01 Acute respiratory failure with hypoxia; E43 Unspecified severe protein-calorie malnutrition; C56.9 Malignant neoplasm of unspecified ovary; D61.818 Other pancytopenia; J90 Pleural effusion, not elsewhere classified; K56.609 Unspecified intestinal obstruction, unspecified as to partial versus complete obstruction; D62 Acute posthemorrhagic anemia; C78.00 Secondary malignant neoplasm of unspecified lung; C78.6 Secondary malignant neoplasm of retroperitoneum and peritoneum; K52.9 Noninfective gastroenteritis and colitis, unspecified; W19.XXXA Unspecified fall, initial encounter; G89.3 Neoplasm related pain (acute) (chronic); Z51.5 Encounter for palliative care; G89.4 Chronic pain syndrome; Z66 Do not resuscitate; R13.10 Dysphagia, unspecified; D63.8 Anemia in other chronic diseases classified elsewhere; Z68.27 Body mass index [BMI] 27.0-27.9, adult; Y93.89 Activity, other specified; Y92.89 Other specified places as the place of occurrence of the external cause; Y99.8 Other external cause status; Z85.43 Personal history of malignant neoplasm of ovary; Z86.718 Personal history of other venous thrombosis and embolism; Z87.891 Personal history of nicotine dependence; Z93.1 Gastrostomy status; Z93.3 Colostomy status; Z95.828 Presence of other vascular implants and grafts
CPT/HCPCS: 36415; 36600; 71045; 80048; 80053; 80061; 80076; 80202-TC; 81000-TC; 82271-TC; 82803-TC; 82962; 83605; 83735-TC; 84100-TC; 84478-TC; 84484; 85025; 85610-TC; 85730-TC; 86886; 86900; 86901; 86920; 87040-TC; 87081; 87086; 93005; 94640; 96365; 96367; 96375; 99285; C9113; G0378; J0692; J0696; J1200; J1815; J1940; J1956; J2060; J2405; J2543; J2765; J3370; J3475; J3480; J7030; J7040; J7050; J7060; J7120; J7131; J7612; P9021; P9046